=== PATIENT | female | born 1950 | race Caucasian/White ===

== ENCOUNTER → 2018-08-22 13:18 | Outpatient (CLI) | payer MEDICARE, OTHER, SELFPAY ==
--- NOTE | 2018-08-22 | DI.MRI.S_ITS ---
PROCEDURE: MR CERVICAL SPINE WO CON INDICATIONS: CERVICAL SPINE PAIN TECHNIQUE: Noncontrast sagittal T1 spin echo and T2 fast spin echo, sagittal STIR, foraminal oblique sagittal T2 fast spin echo, and axial gradient echo or T2 fast spin echo through the cervical spine. COMPARISON: [facility], CR, XR CERVICAL SPINE 2 OR 3 VIEWS, 08/16/2018, 13:23. FINDINGS: Image quality: Excellent. Alignment and Curvature: There is normal bony alignment. Bone Marrow: Marrow demonstrates normal overall signal. Spinal Cord: Visualized spinal cord has normal size and signal. No cerebellar tonsillar herniation. Paraspinous Soft Tissues: No paravertebral masses. Prevertebral soft tissues are normal in thickness. C2-C3: Moderate disc desiccation. Congenital canal stenosis. Mild bilateral facet hypertrophy. Mild canal stenosis. No significant foraminal stenosis. C3-C4: Congenital canal stenosis. Moderate disc desiccation and mild diffuse disc bulge. Mild bilateral facet and uncovertebral hypertrophy. Mild canal stenosis. Mild bilateral foraminal stenosis. C4-C5: Congenital canal stenosis. Moderate disc desiccation and mild diffuse disc bulge. Moderate right greater than left facet and uncovertebral hypertrophy. Moderate canal stenosis. Moderate right and mild left foraminal stenosis. C5-C6: Moderate disc desiccation. Mild diffuse disc bulge. Congenital canal stenosis. Mild bilateral facet and uncovertebral hypertrophy. Moderate canal stenosis. Moderate right and mild left foraminal stenosis. C6-C7: Congenital canal stenosis. Moderate disc height loss and desiccation. Moderate diffuse disc bulge with superimposed broad-based left posterolateral protrusion. Moderate facet and ligamentum flavum hypertrophy. Severe canal stenosis. Mild cord flattening. Severe left and moderate right foraminal stenosis. Flattening deformity of the left C7 nerve root within the neural foramen. C7-T1: Congenital canal stenosis. Moderate disc desiccation. Mild diffuse disc bulge. Mild bilateral facet and uncovertebral hypertrophy. Mild canal stenosis. Moderate bilateral foraminal stenosis. IMPRESSION: 1. Diffuse congenital canal stenosis, with superimposed disc and facet disease, as well as uncovertebral hypertrophy. 2. Multilevel canal stenoses, worst at C6-C7, where there is mild cord flattening present. 3. Multilevel foraminal stenoses, worst at C6-C7 on the left, where there is flattening deformity of the left C7 nerve root. Recommend correlation with clinical symptoms to ascertain relevance of this finding. Dictated by: Ted Mcclain M.D. on 08/22/2018 at 15:19 Approved by: Ted Mcclain M.D. on 08/22/2018 at 15:28
== END ==
PROVIDERS: PCP Family Medicine; Visit Provider Orthopaedic Surgery Orthopaedic Surgery of the Spine
DX: M48.02 Spinal stenosis, cervical region (principal); M50.21 Other cervical disc displacement, high cervical region
CPT/HCPCS: 72141

== ENCOUNTER → 2020-09-22 13:00 | Outpatient (CLI) | payer MEDICARE, OTHER, SELFPAY ==
--- NOTE | 2020-09-22 13:37 | DI.MRI.S_ITS ---
PROCEDURE: MR LUMBAR SPINE WO CON INDICATIONS: Other spondylosis with radiculopathy, lumbar regio TECHNIQUE: Noncontrast sagittal T1 spin echo and T2 fast echo, sagittal STIR, axial T1 and T2 fast spin echo through the lumbar spine. In cases with scoliosis, additional coronal T2 fast spin echo may be performed. COMPARISON: [facility], MR, L-SPINE WITHOUT CONTRAST, 02/15/2017, 14:20. FINDINGS: Image quality: Excellent. Alignment and Curvature: No plain films are available for comparison, for numbering purposes. Thus, for the purposes of this examination, 5 lumbar type vertebral bodies will be presumed, as denoted on the montage panel. This should be confirmed and correlated with plain films, prior to any lumbar spinal intervention. There is mild grade 1 retrolisthesis of L1 on L2, L3 on L4, and L4 on L5. Bone Marrow: Marrow is of normal overall signal. No acute vertebral body compression fractures. Mild reactive signal within the endplates adjacent to the T11-T12, T12-L1, L1-L2, L2-L3, L3-L4, and L4-L5 intervertebral discs. L4-L5 laminotomy. Spinal Cord: Conus medullaris terminates at the L1-L2 disc space level. Visualized cord demonstrates normal signal and size. Paraspinous Soft Tissues: No paravertebral masses. T12-L1: Moderate disc height loss and desiccation. Mild diffuse disc bulge. Mild facet and ligamentum flavum hypertrophy. Mild epidural lipomatosis. Mild canal stenosis. Mild bilateral foraminal stenosis. No change. L1-L2: Moderate disc height loss and desiccation. Mild diffuse disc bulge. Mild facet and ligamentum flavum hypertrophy. Mild epidural lipomatosis. Mild canal stenosis. Mild bilateral foraminal stenosis. No change. L2-L3: Severe disc height loss and desiccation. Mild diffuse disc bulge/osteophyte. Mild facet and ligamentum flavum hypertrophy. Mild epidural lipomatosis. Mild canal stenosis. Moderate right and mild left foraminal stenosis. No change. L3-L4: Moderate disc height loss and desiccation. Mild diffuse disc bulge with superimposed broad-based right far lateral protrusion. Mild facet and ligamentum flavum hypertrophy. Mild epidural lipomatosis. Increased, severe canal stenosis. Increased, severe left and moderate right foraminal stenosis. Left L3 nerve root compression. L4-L5: Mild disc height loss. Moderate disc desiccation. Moderate diffuse disc bulge. Moderate facet and ligamentum flavum hypertrophy. Mild epidural lipomatosis. There is decreased, moderate to severe canal stenosis. There is severe bilateral foraminal stenosis, which appears slightly increased. Bilateral L4 nerve root compression. L5-S1: Mild disc height loss and desiccation. Mild diffuse disc bulge. Mild facet and ligamentum flavum hypertrophy. Mild epidural lipomatosis. Moderate canal stenosis. Moderate subarticular foraminal stenosis bilaterally. No change. IMPRESSION: 1. Postsurgical sequelae. 2. Multilevel degenerative disc and facet disease, as well as ligamentum flavum hypertrophy and epidural lipomatosis. 3. Multilevel canal stenoses, worst at L3-L4, where there is increased, severe canal stenosis. Decreased, moderate to severe canal stenosis at L4-L5 following posterior decompression. 4. Multilevel foraminal stenoses, worst at L3-L4 and L4-L5 where there is associated intraforaminal nerve root compression. Recommend correlation with clinical symptoms to ascertain relevance of these findings. Dictated by: Ted Mcclain M.D. on 09/22/2020 at 14:10 Approved by: Ted Mcclain M.D. on 09/22/2020 at 14:15
== END ==
PROVIDERS: PCP Family Medicine; Referring Provider Orthopaedic Surgery Orthopaedic Surgery of the Spine; Visit Provider Orthopaedic Surgery Orthopaedic Surgery of the Spine
DX: M47.26 Other spondylosis with radiculopathy, lumbar region (principal); M47.27 Other spondylosis with radiculopathy, lumbosacral region; M51.16 Intervertebral disc disorders with radiculopathy, lumbar region; M48.07 Spinal stenosis, lumbosacral region; M48.061 Spinal stenosis, lumbar region without neurogenic claudication; M51.17 Intervertebral disc disorders with radiculopathy, lumbosacral region; E88.2 Lipomatosis, not elsewhere classified
CPT/HCPCS: 72148

== ENCOUNTER → 2020-12-31 09:38 | Outpatient (CLI) | payer MEDICARE, OTHER, SELFPAY ==
[2020-12-31 10:31] LABS: COVID19 -Nasal RAPID Negative (Negative)
== END ==
PROVIDERS: PCP Family Medicine; Visit Provider Surgery
DX: Z20.822 Contact with and (suspected) exposure to COVID-19 (principal); Z01.812 Encounter for preprocedural laboratory examination
CPT/HCPCS: 87635; C9803

== ENCOUNTER 2021-01-03 08:32 | Day surgery (SDC) | payer MEDICARE, OTHER, SELFPAY ==
[2021-01-03 09:20] VITALS: BP 146/59; PULSE 75; RESP 16; TEMP 36.3; O2SAT 100; BMI 31.6
--- NOTE | 2021-01-03 09:50 | PM.HP.1 ---
History of Present Illness History of Present Illness Date Patient Seen: 01/03/21 Time Patient Seen: 09:51 Chief complaint: SCREENING COLONOSCOPY Narrative: The patient presents for colorectal sreening. She has had a previous colonoscopy 12 years ago which was normal. No personal or family history of colon cancer. On further history denies any recent gastrointestinal symptoms. No nausea, vomiting, abdominal pain, loss of appetite, unexplained weight loss, change in bowel habits, diarrhea, constipation, melena, hematochezia, or bright red blood per rectum. Patient History Medical History Diabetes mellitus HTN (hypertension) Hyperlipidemia Surgical History H/O section Status post surgery (02/21/13) Family & Social History Social History: household members spouse Tobacco & Substance use: Smoking Status Never smoker alcohol intake current alcohol intake frequency 0-2 drinks per day Meds Home Medications and Allergies Home Medications Medication Instructions Recorded Confirmed Type aspirin 162 mg PO QDAY #0 12/26/12 History escitalopram oxalate [Lexapro] 20 mg PO QDAY #0 12/26/12 History insulin glargine [Lantus U-100 21 unit SQ QAM #10 ml 12/26/12 History Insulin] insulin glulisine U-100 [Apidra 0 unit SQ QDAY #10 ml 12/26/12 History U-100 Insulin] omeprazole 20 mg PO Q DAY #0 12/26/12 History rosuvastatin [Crestor] 10 mg PO QDAY #0 02/18/13 History furosemide [Lasix] 20 mg PO Q DAY #0 03/01/17 History gabapentin [Neurontin] 300 mg PO TID #0 03/01/17 History nitroglycerin [Nitrostat] 0.4 mg SUBLINGUAL Q5MIN X3 #0 03/01/17 History doxycycline hyclate 100 mg PO BID #0 03/05/17 History amlodipine 01/03/21 History Allergies Allergy/AdvReac Type Severity Reaction Status Date / Time adhesive [ADHESIVE] Allergy Unknown UNKNOWN Unverified 12/12/17 12:06 Sulfa (Sulfonamide Allergy Unknown Unverified 12/12/17 12:06 Antibiotics) [SULFA (SULFONAMIDE ANTIBIOTICS)] Corticosteroids AdvReac Unknown ELEVATED Unverified 12/12/17 12:06 (Glucocorticoids) GLUCOSE [CORTICOSTEROIDS (GLUCOCORTICOIDS)] Review of Systems Review of Systems ROS: Yes All systems reviewed with the patient and are negative except as otherwise documented Exam Vital Signs (past 8 hours): - 01/03/21 09:20 Temperature 97.3 F L Pulse Rate 75 Respiratory Rate 16 Blood Pressure 146/59 H Pulse Oximetry 100 Oxygen Delivery Method Room Air Narrative Exam Narrative: GENERAL-well developed adult woman, no acute distress HEENT-no scleral icterus, hearing intact NECK-no JVD, trachea midline CVS- regular rate, no peripheral edema RESP-unlabored respiratory effort, no audible wheezing GI-soft, nontender nondistended MSK-no cyanosis or clubbing, extremities without deformity SKIN-warm, dry NEURO-alert and oriented, no focal deficits PYSCH-Appropriate mood and affect Assessment & Plan Assessment & Plan narrative: The patient requires colorectal screening and colonoscopy is recommended. Technical details were discussed. Risks, benefits, alternatives explained. Risks including but not limited to myocardial infarction, aspiration, bleeding, pain, missed lesion, incomplete examination, need for further radiographic studies, colonic perforation, and need for major abdominal surgery were discussed. All questions were answered to their satisfaction, and they are in agreement with this plan.
--- NOTE | 2021-01-03 09:55 | SUR.PREOP ---
Surgeon spoke with pt and Consent obtained.
--- NOTE | 2021-01-03 09:59 | SUR.PREOP ---
Surgeon aware of blood sugar 287 and that pt consumed pitcher of prep at 0530.
[2021-01-03] MEDS: fentaNYL 250 MCG/5 ML INJ IV (10:07)
[2021-01-03] MEDS: MIDAZOLAM 5 MG/5 ML VIAL IV (10:16)
--- NOTE | 2021-01-03 10:31 | PM.OP.ENDO ---
Operative Date/Time/Diagnoses Date of procedure: 01/03/21 Pre-op diagnosis: Screening colonoscopy Post-op diagnosis: same Procedure & Clinicians Study performed: Colonoscopy Same procedure as scheduled: Yes Indications: Screening colonoscopy Surgeon: Elbert Whipple Procedure Notes Procedure in detail: Medications: Conscious sedation using 4 mg IV midazolam and 100 mcg IV of fentanyl The history and physical was performed/updated and the patient is ASA class is 2. The procedure was discussed in detail with the patient. Potential risks complications including infection, bleeding, missed diagnosis, perforation, need for surgery, and were explained. Their questions were answered and informed consent was obtained. Patient was brought to the procedure room and placed standard monitoring equipment. The patient's vital signs were monitored continuously throughout the entire procedure. Prior to starting time-out was performed. The patient was placed in the left lateral recumbent position. Procedural sedation was administered. Examination began with a thorough inspection of the perianal area there was no evidence of fissures, fistulae, external hemorrhoids or cutaneous malignancy. The colonoscopy scope was then placed into the anal canal and was advanced to the cecum, which was identified by the ileocecal valve, the appendiceal orifice and the confluence of the taenia. The scope was then slowly withdrawn examining colon thoroughly in all directions, irrigating it of any residual stool. 1. No masses or polyps 2. Sigmoid diverticulosis 3. Grade 1 internal hemorrhoids The patient tolerated the procedure well. They will be discharged once criteria are met. The prep was of good/excellent quality. The withdrawl time was 7 minutes. The sedation time was 22 minutes. Specimen(s): none sent Complications: none Impression: Normal colonoscopy Post-procedure Recommendations: Colonscopy in 10 years Disposition: same day surgery
[2021-01-03 10:35] VITALS: BP 133/56; PULSE 73; RESP 14; TEMP 36.3; O2SAT 98
[2021-01-03 10:40] VITALS: BP 134/54; PULSE 71; RESP 12; O2SAT 98
[2021-01-03 10:45] VITALS: BP 134/56; PULSE 69; RESP 13; O2SAT 97
[2021-01-03 10:50] VITALS: BP 144/58; PULSE 68; RESP 12; TEMP 36.2; O2SAT 97
[2021-01-03 10:55] VITALS: BP 153/59; PULSE 68; RESP 14; O2SAT 97
== END 2021-01-03 11:30 | disposition home or self-care (01) ==
PROVIDERS: PCP Family Medicine; Referring Provider Family Medicine; Visit Provider Surgery
PROC: 0DJD8ZZ Inspection of Lower Intestinal Tract, Via Natural or Artificial Opening Endoscopic (ICD-10-PCS; CPT 45378; principal; 2021-01-03 10:00)
DX: Z12.11 Encounter for screening for malignant neoplasm of colon (principal); E11.9 Type 2 diabetes mellitus without complications; Z79.4 Long term (current) use of insulin; I10 Essential (primary) hypertension; E78.5 Hyperlipidemia, unspecified; K57.30 Diverticulosis of large intestine without perforation or abscess without bleeding; K64.0 First degree hemorrhoids
CPT/HCPCS: G0121; 82962; 99152; J2250; J3010

== ENCOUNTER → 2021-03-08 13:52 | Outpatient (CLI) | payer MEDICARE, OTHER, SELFPAY ==
[2021-03-08 15:14] LABS: Hemoglobin A1C% w Est Avg Glu 7.4 % (4.0-6.0)
[2021-03-08 15:48] LABS: Basophils Absolute Auto 100 /uL (0-100); Basophils Percent Auto 0.8 % (0-2); Eosinophils Absolute Auto 100 /uL (0-450); Eosinophils Percent Auto 1.4 % (2-4); Hematocrit 38.8 % (36-46); Hemoglobin 12.6 g/dL (12.0-16.0); Lymphocytes Absolute Auto 1800 /uL (1100-4500); Lymphocytes Percent Auto 24.9 % (25-40); Mean Corpuscular HGB Conc 32.6 % (30-36); Mean Corpuscular Hemoglobin 26.4 PG (26-34); Mean Corpuscular Volume 81.1 fL (80-100); Monocytes Absolute Auto 600 /uL (0-900); Monocytes Percent Auto 8.2 % (3-14); Neutrophils Absolute Auto 4800 /uL (1500-7000); Neutrophils Percent Auto 64.7 % (50-75); Platelet Count 177 X10^3/uL (150-400); Red Blood Cell Count 4.78 X10^6/uL (4.0-5.2); Red Cell Distribution Width 16.8 % (11.6-14.8); White Blood Cell Count 7.4 X10^3/uL (4.5-11.0)
[2021-03-08 15:51] LABS: BUN Creatinine Ratio 28.4 (6-22); Blood Urea Nitrogen 21 mg/dL (7-17); Calcium 9.2 mg/dL (8.4-10.2); Carbon Dioxide 27 mmol/L (22-32); Chloride 104 mmol/L (98-107); Estimated Glomerular Filt Rate > 60.0 mL/min (>60); Glucose 174 mg/dL (80-110); HEMOLYSIS < 15 (0-50); Potassium 4.9 mmol/L (3.4-5.1); Sodium 138 mmol/L (137-145)
[2021-03-08 15:54] LABS: Add Manual Diff / Slide Review SLIDE REVIEW
[2021-03-08 16:21] LABS: Platelet Estimate Adequate on smear; RBC Morphology Normal Morphology
== END ==
PROVIDERS: PCP Family Medicine; Referring Provider Orthopaedic Surgery Orthopaedic Surgery of the Spine; Visit Provider Orthopaedic Surgery Orthopaedic Surgery of the Spine
DX: Z01.818 Encounter for other preprocedural examination (principal); R73.9 Hyperglycemia, unspecified; Z01.812 Encounter for preprocedural laboratory examination
CPT/HCPCS: 36415; 80048; 83036; 85025; 93005

== ENCOUNTER → 2021-03-18 11:00 | Outpatient (CLI) | payer MEDICARE, OTHER, SELFPAY ==
--- NOTE | 2021-03-18 | DI.CT.S_ITS ---
PROCEDURE: CT LUMBAR SPINE WO CON INDICATIONS: Spinal stenosis, lumbar region with neurogenic claudication. Low back pain. Myelogram TECHNIQUE: Noncontrast 3 mm thick sections acquired from the T12 level to the sacrum. Sagittal and coronal reformats were constructed. For radiation dose reduction, the following was used: automated exposure control. COMPARISON: [facility] [place], CR, XR LUMBAR SPINE 2 OR 3 VIEWS, 11/21/2017, 13:57. [facility] [place], CR, XR LUMBAR SPINE 2 OR 3 VIEWS, 08/06/2020, 10:41. [facility], MR, MR LUMBAR SPINE WO CON, 09/22/2020, 13:34. FINDINGS: Image quality: Excellent. Bones: Mild levoconvex scoliotic curvature is noted. No focal AP alignment abnormality is seen. No acute vertebral body compression fractures. No suspicious lytic or blastic bony lesions. No pars defects. There is transitional lumbar anatomy, with a partially sacralized L5 level. T11-T12: At least moderate loss of disc height is seen. Vacuum disc phenomenon is seen at this level. No significant neural foraminal or central canal narrowing can be seen. T12-L1: There is at least moderate loss of disc height at this level. Prominent vacuum phenomenon is seen. Mild generalized disc bulge is seen. No significant neural foraminal or central canal narrowing can be seen. L1-L2: There is moderate loss of disc height. Vacuum disc phenomenon is seen at this level. Moderate generalized disc bulge is seen. Prominent bridging endplate osteophytes are seen on the left. There is mild left-sided and moderate to severe right-sided neural foraminal narrowing seen. Mild central canal narrowing is seen. L2-L3: At least moderate loss of disc height is seen. Vacuum disc phenomenon is seen at this level. Bridging endplate osteophytes are seen. Moderate generalized disc bulge is seen. There is mild left-sided and at least moderate right-sided neural foraminal narrowing seen. Moderate central canal narrowing is seen. L3-L4: Mild loss of disc height is seen. Vacuum disc phenomenon is seen at this level. At least moderate disc bulge is seen, which is eccentric to the right. There is moderate to severe bilateral neural foraminal narrowing seen. At least moderate central canal narrowing is seen. L4-L5: The disc height is relatively well preserved. Vacuum disc phenomenon is seen at this level. Moderate to prominent disc bulge is seen. Mild to moderate facet hypertrophy is seen. There is moderate to severe bilateral neural foraminal narrowing seen. At least moderate central canal narrowing can be seen. L5-S1: The disc height is well preserved. Vacuum disc phenomenon is seen at this level. Mild to moderate facet hypertrophy is seen at this level. There is moderate left-sided and no significant right-sided neural foraminal narrowing seen. No significant central canal narrowing is seen. Soft tissues: No retroperitoneal masses or hematomas. Visualized aorta is normal in caliber. Atherosclerotic calcification is noted. A small hiatal hernia is incidentally noted. IMPRESSION: Multiple levels of relatively prominent lumbar spine degenerative change are seen, which are similar to the prior MRI examination. Incidental note is made of: Small hiatal hernia Partially sacralized L5 level. Dictated by: Kirill Hull M.D. on 03/18/2021 at 11:50 Approved by: Kirill Hull M.D. on 03/18/2021 at 11:55
== END ==
PROVIDERS: PCP Family Medicine; Referring Provider Orthopaedic Surgery Orthopaedic Surgery of the Spine; Visit Provider Orthopaedic Surgery Orthopaedic Surgery of the Spine
DX: M48.062 Spinal stenosis, lumbar region with neurogenic claudication (principal); M54.5 Low back pain; M47.816 Spondylosis without myelopathy or radiculopathy, lumbar region; M47.817 Spondylosis without myelopathy or radiculopathy, lumbosacral region; K44.9 Diaphragmatic hernia without obstruction or gangrene; M43.27 Fusion of spine, lumbosacral region
CPT/HCPCS: 72131

== ENCOUNTER → 2021-03-18 13:18 | Outpatient (CLI) | payer MEDICARE, OTHER, SELFPAY ==
[2021-03-18 13:44] LABS: COVID19 -Nasal RAPID Negative (Negative)
== END ==
PROVIDERS: PCP Family Medicine; Visit Provider Physician Assistant
DX: Z01.812 Encounter for preprocedural laboratory examination (principal); Z20.822 Contact with and (suspected) exposure to COVID-19
CPT/HCPCS: 87635

== ENCOUNTER 2021-03-21 05:42 | Inpatient (IN) | payer MEDICARE, OTHER, SELFPAY ==
[2021-03-15 09:42] VITALS: BMI 31.0
[2021-03-21] VITALS (19 sets, daily range): BP systolic 102–141; BP diastolic 45–64; PULSE 69–86; RESP 7–26; TEMP 35.6–36.5; O2SAT 87–99; BMI 31.9
[2021-03-21] MEDS: LACTATED RINGERS 1,000 ML 42 ML IV ×2 (07:09→09:42)
--- NOTE | 2021-03-21 07:34 | PM.PREOP ---
Pre-operative Note COVID-19 COVID-19 status: Negative Result date/Date tested (Pos, Neg/Pending): 03/19/21 Interval Note History & Physical reviewed/Exam performed by Physician: Yes Changes to H&P: No
[2021-03-21] MEDS: CEFAZOLIN 1 GM VIAL 2 GM IV ×2 (07:48→16:35)
--- NOTE | 2021-03-21 09:40 | SUR.OPER ---
Prone on spine table, head in foam head support, padded chest and pelvic supports, gel pad at knees, lower legs supported by pillows; nipples, genitalia and toes free of pressure, arms secured on foam padded arm boards at <90 degrees abduction. Tape over blanket at thigh secured to table.
[2021-03-21] MEDS: BUPIVACAINE LIPOSOME 266 MG/20 ML VIAL INJ (09:43)
[2021-03-21] MEDS: BUPIVACAINE 0.25% W/ EPI 30 ML VIAL 60 ML INJ (09:43)
--- NOTE | 2021-03-21 09:44 | SUR.OPER ---
Patient's CBG rechecked at [address] Poe, = 194.
[2021-03-21] MEDS: INSULIN REGULAR 100 UNIT/ML 3 ML VIAL SUBCUT ×2 (11:00→13:03)
--- NOTE | 2021-03-21 11:57 | SUR.OPER ---
CBG rechecked at 1050 = 231. Regular insulin ordered by Dr. Poe and given by him.
--- NOTE | 2021-03-21 12:11 | DI.RAD.S_ITS ---
PROCEDURE: XR LUMBAR SPINE 2-3V INDICATIONS: L3-4, L4-5 TLIF TECHNIQUE: 2 intraoperative fluoroscopic views of the lumbar spine were acquired. COMPARISON: None. FINDINGS: Intraoperative fluoroscopic images of lower lumbar spine shows posterior fusion and intervertebral spacer placement at L3 through L5 levels. IMPRESSION: Fluoro guidance was provided intraoperatively for posterior fusion at L3 through L5 levels. Dictated by: Matthew Willingham M.D. on 03/21/2021 at 12:17 Approved by: Matthew Willingham M.D. on 03/21/2021 at 12:18
--- NOTE | 2021-03-21 12:24 | PM.OP.1 ---
Operative Date/Time/Diagnoses Date of procedure: 03/21/21 Time of procedure: 07:55 Pre-op diagnosis: 1. L3-4, L4-5 hx of laminectomies and radiculopathy 2. L3-4, L4-5 spinal stenosis with radiculopathy Post-op diagnosis: same Procedure & Clinicians Procedure: 1. L3-4, L4-5 Postero-lateral and posterior interbody fusion 2. L3-4, L4-5 interbody cage placement. 3. L3-4, L4-5 decompressive laminectomy with bilateral facetecomies 4. L3-4, L4-5 Posterior segmental instrumentation 5. [place] of bone marrow from iliac crest 6. Utilization of microsurgical technique and operating microscope 7. Robotic navigation assisted implant placement Same procedure as scheduled: Yes Indications: Patient has been having chronic back pain and worsening lumbar radiculopathy. Patient had previous laminectomies with temporary relief of her symptoms with worsening of her back pain and leg pain over the last year. Patient failed multiple conservative management with worsening pain weakness and numbness in her lower extremity. Patient has been having difficulty performing activity of daily living. After discussing risks benefits of treatment options, patient elected proceed with surgery. Surgeon: Debbie Pichardo Logistics Operations Manager: [place] Click Yes if Unassisted: No Anesthesia Type: General Operative Notes Closure Type: primary Specimen(s): none sent Prosthetic devices, grafts, tissues, transplants, or devices: GLobus CREO screws, RIse cages Applied: catheter Estimated Blood Loss (mL): 200 Blood products transfused: none Procedure in detail: Patient was seen in the preoperative area. Risks and benefits of the surgery was discussed with the patient. Informed consent was obtained from the patient and placed in the chart. Surgical site was marked. Patient was taken to the operative room. General anesthesia was administered. Prophylactic antibiotic was given to the patient less than 30 min before the incision was made. Patient was placed into a prone position on the Jose Manuel table. Patient's back was then prepped and draped in the sterile fashion. Time-out was performed at this time. After patient was prepped and draped, patient's PSIS was palpated and marked bilaterally. Small 1 cm incision was made over the PSIS for placement of the reference probes. Two trocar was placed into the PSIS 1 on each side. The reference probe was attached to the trocar of the reference apparatus. At this time the C-arm imaging was used to confirm AP and lateral of L3, L4-L5 vertebrae and merged the C-arm imaging using the [employer] robotic navigation system with the CT of the lumbar spine. After successful merging was completed and confirmed, skin marker was used to slim out the skin incision using the [employer] robotic arm. Bilateral incision was made at this time. Pre templated trajectory was used and guided using the [employer] robotic navigation system for bilateral L3 L4, L5 pedicle screw placement. This was done by using the robotic arm to guide the high-speed bur to make a cortical entry point. Next a drill was placed also using the robotic arm and guided using the navigation system drilling partially through bilateral L3, L4, L5 pedicles. Next L3, L4, L5 pedicle screws it was pre templated and measured was placed onto the power armor reconnaissance vehicle driver and inserted into the pedicles bilaterally. After all 6 screws were placed C-arm imaging was taken of both AP and lateral to confirm the placement. Excellent placement of the screws were confirmed and a matched precisely with the pre planned screw placement using the navigation system. MARs retractor was inserted using [employer] guidence. Globus MARS retractors was placed inside the incision and docked onto the L3, L4 lamina. Using microsurgical technique and operating microscope, a L4, L5 laminectomy and L3-4, L4-5 facetectomy was performed using a [place] rongeur. Patient was found have severe lateral recess and neural foramen stenosis which was fully decompressed after the laminectomy facetectomy. More than 75% of the facets were removed during the process of decompression rendering L3-4, L4-5 level grossly unstable and required a fusion procedure at the same time. Patient was also found to have significant amount of epidural scar from prior laminectomy. Right extra care was taken to not need breach the dura or having any irritation to the nerve structures during the process of laminectomy and facetectomy. The disc space at L3-4, L4-5 was identified, and a total diskectomy was performed at L3-4, L4-5 level. The endplates were decorticated using a rasp and shaver. The total diskectomy and decortication was performed at L3-4, L4-5 level in order to to accomplish a L3-4, L4-5 fusion. The local bone from the laminectomy and facetectomy was saved for local bone grafting. After the total diskectomy and decortication was completed, Trifecta bone graft material was combined with local bone that was harvested earlier. At this time, a separate skin is incision was made over the iliac crest. A Jamshidi needle was inserted into the iliac crest through a separate skin incision. 5 cc of bone marrow aspiration was obtained through the separate skin incision using a Jamshidi needle from the iliac crest. The bone marrow aspiration was combined with local bone and the Trifecta bone grafting material. The bone grafting material was placed into the L3-4, L4-5 interbody space along with expandable cages. One cage each was inserted into the L3-4 L4-5 interbody space along with bone graft material. The cage was expanded to its maximum height using the torque limiting screwdriver. The disc preparation as well as the cage insertion were also performed under navigation guidance. After the cage was placed, AP and lateral C-arm imaging was taken to confirm placement of the cage and excellent position was confirmed. Globus MARS retractor was inserted and docked onto the L3-4, L4-5 posterolateral gutter on the right side. Using the power drill, posterior-lateral decortication was performed at L3-4, L4-5 level until bleeding cortical bone was identified. The remaining bone grafting material was placed into the L3-4, L4-5 posterior lateral gutter he order to accomplish posterolateral fusion at the L3-4, L4-5 level. At this time the tulips were attached to the L3, L4-L5 pedicle screw shanks. After measuring the length of the rods, they were inserted into the tulips of the pedicle screws and locked in place using locking caps and torque limiting screwdriver bilaterally. Total 6 caps and 2 titanium rods was used in order to complete the posterior instrumentation construct. After all the hardware was placed, and confirmed with AP and lateral C-arm imaging, the wound was then irrigated with sterile normal saline and packed with Ray-Alexander gauze for 3 min to accomplish hemostasis. After the gauze was removed the deep fascia was closed with #1 Vicryl suture. The subcutaneous layer was closed with 2-0 Vicryl. The skin was closed with skin piper. Patient tolerated the procedure well. There were no complications. Neuro monitoring system was used to monitor patient's neurologic status throughout entire procedure. There was no disturbance of the neural monitoring signals throughout the case. Complications: none Post-operative Condition: stable Disposition: PACU Plan for aftercare: Admit to inpatient hospital
[2021-03-21] MEDS: OXYCODONE/ACETAMINOPHEN 5/325 TABLET 1 TAB PO ×2 (13:22→13:51)
[2021-03-21] MEDS: hydrOXYzine 50 MG/ML INJ IM (13:23)
--- NOTE | 2021-03-21 14:39 | PC.NURSE ---
Assess- Patient admitted to room 210, she had a multiple level tlif. Dressing to lower back is cdi with small amount of drainage. Patient medicated with two percocet down in PACU, she is groggy but will wake up. 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 BS 188, will be rechecked before dinner. Patient is wiggling her toes and ankles, scd machine on her feet and pumping. Patient is lying supine and will have NS at 100cc/hr infusing.
[2021-03-21] MEDS: SODIUM CHLORIDE 0.9% 1,000 ML 100 ML IV (14:56)
[2021-03-21] MEDS: METOPROLOL IR 25 MG TABLET PO (16:35)
[2021-03-21] MEDS: LOSARTAN 50 MG TABLET PO (20:46)
[2021-03-21] MEDS: ATORVASTATIN 20 MG TABLET PO (20:46)
[2021-03-21] MEDS: DOCUSATE 100 MG CAPSULE PO (20:46)
[2021-03-21] MEDS: SENNOSIDES 8.6 MG TABLET 17.2 MG PO (20:46)
[2021-03-22] MEDS: CEFAZOLIN 1 GM VIAL 2 GM IV (00:29)
[2021-03-22] MEDS: SODIUM CHLORIDE 0.9% 1,000 ML 100 ML IV (00:29)
--- NOTE | 2021-03-22 01:32 | PC.NURSE ---
This RN was told in report that the patients dressing was CDI but upon assessment, the patients dressing has some shadow drainage that was marked with a pen by this RN. Will continue to check for increased drainage. Dressing remained intact at this time. Patient resting in bed and jeff light is within reach.
[2021-03-22] MEDS: ACETAMINOPHEN 325 MG TABLET 650 MG PO ×2 (03:00→08:30)
[2021-03-22 04:13] VITALS: BP 120/60; PULSE 86; RESP 18; TEMP 36.9; O2SAT 96
[2021-03-22] MEDS: PANTOPRAZOLE DR 20 MG TABLET PO (05:50)
[2021-03-22 05:52] LABS: Hematocrit 30.2 % (36-46); Hemoglobin 9.8 g/dL (12.0-16.0)
[2021-03-22 08:00] VITALS: BP 123/82; PULSE 81; RESP 17; TEMP 36.6; O2SAT 96
[2021-03-22] MEDS: INSULIN LISPRO 100 UNIT/ML 3ML VIAL SUBCUT ×7 (08:04→21:44)
[2021-03-22] MEDS: INSULIN GLARGINE 100 UNIT/ML 3ML PEN 18 UNIT SUBCUT (08:05)
[2021-03-22] MEDS: FERROUS SULFATE 325 MG TABLET PO (08:31)
[2021-03-22] MEDS: DOCUSATE 100 MG CAPSULE PO ×2 (08:31→21:43)
[2021-03-22] MEDS: LOSARTAN 50 MG TABLET PO ×2 (08:31→21:45)
--- NOTE | 2021-03-22 09:05 | PT.IIE ---
Current Diagnoses Other spondylosis with radiculopathy, lumbosacral region (03/21/21) Spinal stenosis, lumbar region without neurogenic claudication (03/21/21) Other specified postprocedural states (03/21/21) Surgery Performed Operation Date: 11/22/20 07:45 <No data on this case meets the specified criteria> Operation Date: 03/21/21 07:45 Actual Procedures p L3-4, L4-5 TLIF with posterior instrumentation - Debbie Pichardo MD Medical History (Last Reviewed 03/22/21 @ 11:43 by Janes Amin PA-C) Anxiety Arthritis CAD (coronary artery disease) Diabetes mellitus Easy bruisability GERD (gastroesophageal reflux disease) Heel pain History of left heart catheterization HTN (hypertension) Hyperlipidemia Neuropathy Spinal stenosis Physical Therapy Inpatient Evaluation/Re-Eval M1 PT/OT-IP Prior Functional Status Start: 03/22/21 11:50 Freq: NEEDED Status: Active Protocol: Document 03/22/21 09:05 AB (Rec: 03/22/21 12:00 AB [email or web address]) Medical Review Prior Functional Status Medical History Reviewed Yes Communication able to answer questions but requires cues to keep eyes open; requires increase time to respond to questions and instructions Social History Household Members spouse Living Arrangements House Number of Floors (Floors) Two Floors Number of Stairs To Enter/Railing? has 1 step to enter the house; has 14 steps L rail descending to TV room area Home Environment High Toilet,Walk in Shower Home Equipment Front Wheel Walker,Shower Seat without Backrest,Hand Held Shower,Grab Bars In Shower Additional Social History Comment pt has a walking stick M2 PT-IP Current Condition Start: 03/22/21 11:50 Freq: NEEDED Status: Active Protocol: Document 03/22/21 09:05 AB (Rec: 03/22/21 12:00 AB [email or web address]) Physical Therapy Current Condition Current Condition Evaluation Date 03/22/21 Treatment Diagnosis L3-4, 4-5 fusion/lami; difficulty in walking Onset Date 03/21/21 Precautions Lumbar Precautions Log Roll,No Twisting,Limit Bending,Lifting Restriction of 10 lbs,Gait Belt above Incisional Area M3 PT-IP Subjective Start: 03/22/21 11:50 Freq: NEEDED Status: Active Protocol: Document 03/22/21 09:05 AB (Rec: 03/22/21 12:00 [email or web address]) Subjective Physical Therapy Visit Type Type Initial Evaluation Visit Start Time 09:05 Visit Stop Time 10:05 Total Visit Minutes 60 Number of TALENT ACQUISITION PROJECT MANAGER Visits 0 Physical Therapy Visit Comments Patient Comments agreed to do PT; requires cues to keep eyes open Therapy Pain Assessment Pain When Pain Assessed At Rest Pain Present Pain Present Pain Reported Location lower back Intensity 8 Scale Used Numeric (0 - 10) Pain Management Techniques Apply Cold,Modification of Treatment,Re-positioning, Timing of Activity with Medications M4 PT-IP Mobility and Gait Start: 03/22/21 11:50 Freq: NEEDED Status: Active Protocol: Document 03/22/21 09:05 (Rec: 03/22/21 12:00 [email or web address]) PT-Bed Mobility Assessment Rolling Type of Rolling Log Rolling Level of Assist Maximal Assistance Supine to Sit Supine to Sit Maximum Assistance Scooting Scooting to Edge of Bed Maximum Assistance PT-Transfer Assessment Sit to and From Stand Sit to and from Stand Moderate Assistance,1 Person Assistance,Use of Upper Extremities Equipment Transfer Assistive Device Gait Belt,Front Wheeled Walker Orthotic/Prosthetic Devices or Brace: No Transfers Transfer Destination Chair Transfer Technique Stand Step Pivot Transfer Ability Level of Assist Moderate Assistance,1 Person Assistance,Use of Upper Extremities Comments Mobility Comments educated pt and spouse regarding back precautions and log roll bed mobility. pt completed log roll supine to sit max A and max cues. requiring min A for sitting balance, max A for scooting to EOB. completed sit to stand mod A and cues and step transfer to chair using FWW mod A and cues. pt agreed to ambulated and completed ~ 5 ft using FWW mod A. presents with decrease step elevation and pt continues to be drowsy affecting following directions . pt agreed to stay up on chair. positioned on chair. call light and table placed within reach. Gait Assessment Gait Gait Assistance Required: Moderate Assistance Distance (Feet) 5 Able to Maintain Weight Bearing Status Yes During Gait Assistive Devices Assistive Device Gait Belt,Front Wheeled Walker Orthotic/Prosthetic Devices or Brace: No Gait Deviations General Gait Pattern Antalgic,Decreased Stride Length,Decreased Feet Clearance,Step-to Gait Factors Limiting Gait Function Factors Limiting Gait Function Decreased Activity Tolerance, Decreased Strength,Difficulty Following Directions,Limited Range of Motion,Pain,Poor Balance,Poor Safety Awareness Comments Gait Comments pls refer to mobility section for details. PT-Balance Assessment Sitting Balance and Reactions Static Sitting Balance Ability Good Dynamic Sitting Balance Ability Fair Standing Balance and Reactions Static Standing Balance Ability Poor Dynamic Standing Balance Ability Poor Device Used FWW M5 PT-IP Objective Assessments Start: 03/22/21 11:50 Freq: NEEDED Status: Active Protocol: Document 03/22/21 09:05 AB (Rec: 03/22/21 12:00 AB [email or web address]) Orientation Orientation/Cognition Level of Alertness Lethargic Orientation Name Safety Awareness Decreased Safety Awareness Memory Description Short Term Impaired Gross Range of Motion Lower Extremity ROM Assessment Within Functional Limits Strength Lower Extremity Strength Hip 3+/5 Knee 4-/5 Muscle Tone Muscle Tone WNL Yes M6 PT-IP Treatment Start: 03/22/21 11:50 Freq: NEEDED Status: Active Protocol: Document 03/22/21 09:05 AB (Rec: 03/22/21 12:00 AB [email or web address]) Physical Therapy Treatment Education Education Provided Precautions,Weight Bearing Status,Post-Op Packet,Safety M7 PT-IP Assessment and Plan Start: 03/22/21 11:50 Freq: NEEDED Status: Active Protocol: Document 03/22/21 09:05 AB (Rec: 03/22/21 12:00 AB [email or web address]) PT Summary Assessment and Plan Potential Rehabilitation Potential Good Status of Condition at Evaluation Evolving Summary Impairments Pain,ROM,Strength,Balance, Coordination,Sensation,Tone, Cognition,Bed Mobility, Transfers,Gait,Activity Tolerance Assessment Summary pt requiring mod to max A with mobility using FWW. Pt is drowsy affecting activity tolerance, safety awareness and mobility. pt plans to go home with spouse to assist her . will conduct caregiver training when appropriate. will continue to assess progress for safe d/c plan. Goals Bed Mobility Goal Standby Assistance Transfer Goal Independent,Front Wheeled Walker Gait Goal Standby Assistance,Front Wheel Walker Gait Distance 150 Other Goals up/down 1 step using FWW SBA up/down 14 steps R rail ascending SBA Days to Meet Goals 10 Frequency of Treatment Frequency Of Treatment Twice a Day Treatment Plan Physical Therapy Treatment Plan Bed Mobility Training,Transfer Training,Gait Training, Therapeutic Exercise,Balance Retraining,Post Op Education, Discharge Planning,Hot or Cold Pack,Neuromuscular Re-ed, Coordination Retraining,Manual Therapy Precautions Lumbar Precautions Log Roll,No Twisting,Limit Bending,Lifting Restriction of 10 lbs,Gait Belt above Incisional Area Recommendations To Nursing Amount of Assist Needed 2 Person Assist Discharge Recommendations PT Discharge Recommendations Home with 26/03 Assist Available,Home Health,SNF Rehab,Home vs SNF Transportation Needs at Discharge Private Vehicle,Wheelchair/ Cabulance
[2021-03-22] MEDS: AMLODIPINE 5 MG TABLET PO (09:12)
--- NOTE | 2021-03-22 09:50 | PC.NURSE ---
Addendum entered by Rosina Diego R.N. 03/22/21 13:27: Patient back to bed with 2 person assist, she will need more work with Physical therapy to do this but was able to do well with queing and getting herself out of the chair and standing. She is on her left side and resting comfortably. Original Note: Assess- Patient is alert and oriented x3, she is more awake but still groggy when sitting up with physical therapy. Dressing to lower back changed to cover site plus x 2 dressings now cdi. CMS wnl and ppx2. Patient states that her pain is a 0 at rest, given tylenol earlier this morning. Patient has not had any narcotic pain medication since coming out of surgery, she has been very groggy, just sitting up at the side of the bed, and eyes closing. She wakes up easily and does know where she is at. at bedside and helpful with care.
--- NOTE | 2021-03-22 10:59 | CM.DANOTE ---
Discharge Planning/Care Management DCP: assessment: Case received, EMR reviewed, discussed in Team Rounds and then met with pt. Introduced self and role. Pt is a 70 year old female who admitted yesterday for a scheduled spinal/lumbar surgery. Admission status: INPT: confirmed by UR MILLY Barretter: Medicare and [facility] Pt confirms she plans to d/c home when stable for same with assist from Nicolas. He was present for caregiver training with the therapy team this morning. DCP team will follow prn as POC unfolds to make sure plan as per above remains doable. CM Discharge Assessment Start: 03/22/21 10:56 Freq: Status: Active Protocol: Document 03/22/21 10:56 ITV (Rec: 03/22/21 10:58 ITV [id number]) Discharge Planning Assessment Advance Directives? No History Provided By Patient,Medical Record Prior Living Arrangements House Household Members spouse Independent with ADL's Yes Is patient alert and oriented? Yes DME Already Rented / Owned FWW / Walker,Other Comment used one walking stick when going out for extended time. Has a FWW at home and is currently using this with PT/ OT during their sessions Pre-Anesthesia Assessment Start: 03/15/21 09:42 Freq: Status: Active Protocol: Document 03/15/21 09:42 CAB (Rec: 03/15/21 10:51 CAB [id number]) Pre-Anesthesia Assessment Patient Information Reviewed Via Phone Assessment Assessment Completed With Patient H&P Completed Within 30 Days Yes Diagnostic Results BMP/CMP,CBC,EKG Comment Labs/EKG @ 03/08/21, COVID screen @ 03/18/21 Primary Care Provider Julius Poole Seen Specialist in Last 12 Months Yes Specialist Seen Fretted Instrument Inspector,Orthopedist, Insurance Adjustor Primary Language Albanian Paint Technician Required No Height 170.18 cm Weight 89.811 kg Body Mass Index (BMI) 31.0 Hearing Ability Normal Visual Assist Glasses Dentition Type Teeth, Natural Present Barriers to Learning None Hx Anesthesia Reactions No Hx Family Anesthesia Reaction No Hx Malignant Hyperthermia No Hx Blood Transfusions Yes: 2020 r/t anemia Hx Blood Transfusion Reaction No Anesthesia Review Requested Yes: Surgeon requested re: No reason provided alcohol intake current alcohol intake frequency a few times a week Smoking Status Never smoker Substance Use Type does not use Pain Present Pain Reported Musculoskeletal Symptoms Abnormal Gait,Back Pain, Difficulty Walking,Limited Range of Motion,Muscle Weakness,Tremors History of Falling (Recent or History of Yes ) Patient is completely paralyzed or No completely immobile Mental Status Oriented to own ability Comment Uses a hiking stick with prolonged ambulation Is patient on oxygen? No Does patient have GREGORY/SOB Yes: If climbing a hill Hx Sleep Apnea No Currently Taking a Beta Kalen Yes: Metoprolol Can You Climb a Flight of Stairs Without No SOB Hx Chest Pain No Hx SOB Yes: If climbing a hill Hx Syncope or Dizziness No Anti-Coagulant Therapy No Has a Fretted Instrument Inspector Yes: Dr. Felipe Hx Pacemaker/ICD No Pacemaker Rep Required? No Cardiac Clearance Received Yes Diet Type At Home Diabetic dysphagia No Gastrointestinal Symptoms Diarrhea,Reflux Urinary Catheter Present No Hx Urinary Self Catheterization No Diabetes Yes: Type I-pt states brittle diabetic HgbA1C 7.4 Date 03/08/21 Patient No Lactating No Presence of External or Internal Medical No: cardiac stent, Glucose Devices continuous monitor, left ankle Have you had any close contact with No someone diagnosed with COVID-19? Marital Status Lives With spouse Prior Living Arrangements House Number of Floors (Floors) Two Floors Support System Spouse Does the Patient Have Assistance After Yes Surgery Patient Discharge Plan Description Return Home Comment Pt advised 1-4 length of stay per surgeon Feels Safe in Current Environment Yes Been Physically Hurt or Threatened By a No Person in Current Environment Do you have thoughts of harming yourself None or others? Are you currently considering suicide? No Do you have a plan to hurt yourself or No Plan others? Do You Have Any Spiritual Beliefs That No May Affect Your HC Choices? Do You Have Any Cultural Practices That No May Affect Your HC Choices? Comment Pentecostalism Who Can We Speak to About Patient's Care Family, friends Identifying Code for Release of Patient Declines to issue Information Health Care Proxy/Next of Kin Nicolas () Health Care Proxy Emergency Contact Name Nicolas () Emergency Contact Advance Directives? No Power of Pmo Analyst Yes: Nicolas Power of Pmo Analyst Name Nicolas Arthur Power of Pmo Analyst Phone Number [phone] PAC Instructions Diabetes instructions,Durable medical equipment,Medications to take/avoid,Nasal antibiotic ,No ETOH/petroleum product on skin DOS,NPO,Post-op transportation,Sensory aids, Sturdy shoes/comfortable clothes,Do not bring valuables and remove jewelry
--- NOTE | 2021-03-22 11:39 | PM.PNPO.1 ---
Subjective Subjective Date Patient Seen: 03/22/21 Time Patient Seen: 11:39 Interval history: Patient's pain is mild. Denies fever or chills. No nausea vomiting. Patient reports feeling a little sluggish this morning. at bedside says she is acting normally but seems tired. Exam Vital Signs (past 8 hours): - 03/22/21 04:13 03/22/21 08:00 Temperature 98.5 F 97.9 F Pulse Rate 86 81 Respiratory Rate 18 17 Blood Pressure 120/60 123/82 Pulse Oximetry 96 96 Oxygen Delivery Method Nasal Cannula Oxygen Flow Rate 1 Narrative Exam Narrative: 70-year-old female resting comfortably in bedside chair no apparent distress. Neurovascular status is intact bilateral lower extremities. Dressing this morning was moist and was changed by nursing staff. Dressing is Clean, dry, intact.. Objective Labs Result Diagrams: 03/22/21 05:40 Labs: Laboratory Results - last 24 hr 03/22/21 05:40 Hgb 9.8 L Hct 30.2 L PFSH Medical History Anxiety Arthritis CAD (coronary artery disease) Diabetes mellitus Easy bruisability GERD (gastroesophageal reflux disease) Heel pain History of left heart catheterization HTN (hypertension) Hyperlipidemia Neuropathy Spinal stenosis Surgical History H/O section History of ankle surgery Hx of appendectomy Hx of bilateral cataract extraction Hx of eye surgery Hx of heart artery stent (03/08/12) Hx of laminectomy (03/05/17) Hx of tonsillectomy Social History household members: spouse Smoking Status: Never smoker alcohol intake: current Assessment & Plan Post-op Postoperative Procedures: Procedures Operation Date: 11/22/20 07:45 <No data on this case meets the specified criteria> Operation Date: 03/21/21 07:45 Actual Procedure Side Surgeon p L3-4, L4-5 TLIF with posterior instrumentation Debbie Pichardo MD Postoperative day: 1 Postoperative status: doing well Postoperative status narrative: Patient progressing as expected Postoperative plan: routine post-op care Postoperative plan narrative: Mobilize with physical therapy. Limit bending, twisting, lifting. Disposition home today or tomorrow. Quality VTE Deep Vein Thrombosis/Pulmonary Embolism Present on Admission: No
--- NOTE | 2021-03-22 11:58 | OT.IP.EVAL ---
Current Diagnoses Other spondylosis with radiculopathy, lumbosacral region (03/21/21) Spinal stenosis, lumbar region without neurogenic claudication (03/21/21) Other specified postprocedural states (03/21/21) Surgery Performed Operation Date: 11/22/20 07:45 <No data on this case meets the specified criteria> Operation Date: 03/21/21 07:45 Actual Procedures p L3-4, L4-5 TLIF with posterior instrumentation - Debbie Pichardo MD Past Medical History (Last Reviewed 03/22/21 @ 11:43 by Janes Amin PA-C) Anxiety Arthritis CAD (coronary artery disease) Diabetes mellitus Easy bruisability GERD (gastroesophageal reflux disease) H/O section Heel pain History of ankle surgery History of left heart catheterization HTN (hypertension) Hx of appendectomy Hx of bilateral cataract extraction Hx of eye surgery Hx of heart artery stent (03/08/12) Hx of laminectomy (03/05/17) Hx of tonsillectomy Hyperlipidemia Neuropathy Spinal stenosis Surgical History (Last Reviewed 03/22/21 @ 11:43 by Janes Amin PA-C) H/O section History of ankle surgery Hx of appendectomy Hx of bilateral cataract extraction Hx of eye surgery Hx of heart artery stent (03/08/12) Hx of laminectomy (03/05/17) Hx of tonsillectomy Occupational Therapy Inpatient Evaluation/Re-Eval M1 PT/OT-IP Prior Functional Status Start: 03/22/21 11:50 Freq: NEEDED Status: Active Protocol: Document 03/22/21 11:17 [facility] (Rec: 03/22/21 13:01 [facility] [id number]) Medical Review Prior Functional Status Medical History Reviewed Yes Communication able to answer questions but requires cues to keep eyes open; requires increase time to respond to questions and instructions Mobility and Gait Pt use of walking stick outside and only able to walk for 1/4 miles before her back would stiffen up. Activities of Daily Living and IADL's Pt states has to sit and would be okay with her ADl's and IADl needs. Social History Household Members spouse Living Arrangements House Number of Floors (Floors) Two Floors Number of Stairs To Enter/Railing? has 1 step to enter the house; has 14 steps L rail descending to TV room area Home Environment High Toilet,Walk in Shower Home Equipment Front Wheel Walker,Shower Seat without Backrest,Hand Held Shower,Long Handled Sponge, Long Handled Shoe Horn,Grab Bars In Shower M2 OT-IP Current Condition Start: 03/22/21 12:42 Freq: Status: Active Protocol: Document 03/22/21 11:17 [facility] (Rec: 03/22/21 13:01 [facility] [id number]) Occupational Therapy Current Condition Current Condition Evaluation Date 03/22/21 Post Operative Precautions Lumbar Precautions Log Roll,No Twisting,Limit Bending,Lifting Restriction of 10 lbs,Gait Belt above Incisional Area M3 OT- IP Subjective and Pain Start: 03/22/21 12:42 Freq: Status: Active Protocol: Document 03/22/21 11:17 [facility] (Rec: 03/22/21 13:01 [facility] [id number]) OT- Subjective Occupational Therapy Visit Type Type Initial Evaluation Visit Start Time 11:17 Visit Stop Time 11:58 Total Visit Minutes 41 Occupational Therapy Visit Comments Patient Comments Pt's present in the room for OT eval. Patient/Caregiver Goals To go home. OT Pain Assessment Pain When Pain Assessed At Rest Pain Present Pain Present Pain Reported Location lower back Intensity 4 Scale Used Numeric (0 - 10) M4 OT- IP ADL's Start: 03/22/21 12:42 Freq: Status: Active Protocol: Document 03/22/21 11:17 [facility] (Rec: 03/22/21 13:01 [facility] [id number]) OT [id number] Comments OT Self-Feeding Comments Pt able to eat after set-up. Pt a bit groggy and did not recognize that there was mash potatoes on her lunch tray. OT ADL-Grooming General Evaluation Grooming Ability Standby Assistance Comments OT Grooming Comments Pt able to stand with MODA and FWW and cues to hold to the counter to assist with her balance. OT ADL-Oral Care Comments Oral Care Comments Not performed. OT ADL-Dressing General Eval Lower Body Dressing Ability Maximum Assistance Comments OT Dressing Comments Initiated education of nuclear engineering technician and sock aid with pt. Pt a bit confused and needing MAXvc to help sequence through the task. OT ADL-Toileting General Evaluation Toileting Ability Total Assistance Comments OT Toileting Comments Orozco in place. OT ADL-Bathing Comments OT Bathing Comments NOt at this time. M5 OT- IP IADL's Start: 03/22/21 12:42 Freq: Status: Active Protocol: Document 03/22/21 11:17 [facility] (Rec: 03/22/21 13:01 [facility] [id number]) OT-Instrumental Activities of Daily Living Home Safety Awareness Awareness of Need for Assistance at Home Decreased Awareness Home Safety Comments Pt's will be home to assist her as need and available 26/03. Medication Management Medication Management Caregiver Administers Money Management Money Management Caregiver Provides Assistance Meal Preparation Meal Preparation Caregiver Provides Assist Surveillance Operator Surveillance Operator Caregiver Provides Assist M6 OT- IP Functional Cognition Start: 03/22/21 12:42 Freq: Status: Active Protocol: Document 03/22/21 11:17 [facility] (Rec: 03/22/21 13:01 [facility] [id number]) Cognitive Factors Limiting Selfcare Function Cognitive Ability Level of Alertness Alert,Confusional State,Drowsy Patient Orientation Name,Place,Situation Attention Span Ability Capable of Focused Attention, Capable of Sustained Attention ,Unable to Focus,Unable to Sustain Attention Ability to Follow Commands Able to Follow One Step Commands with Increased Time, Able to Follow One Step Commands with Repetition Memory Description Short Term Impaired,Working Impaired Safety Awareness Decreased Recall of Precautions,Decreased Ability to Apply Precautions, Underestimates Need for Assistance Problem Solving Ability Needs Assist to Identify Solutions Cognitive Comments Cognitive Assessment Comments Pt a bit confused and needing step by step commands to follow. Pt feels that she is not thinking very fast and able to tell the PA that usually when she plays Scrabble that she scores 900 but only able to score 300 for now. Pt's states when pt had prior surgeries was a confused initially. Pt only able to recall one back precaution. Pt getting the ropes of the sock aid and catheter confused. Nursing aware that pt has been confused. Educated pt's to try not to give pt so many cues , give pt time to process commands, and give short concrete commands as pt currently having difficulty to process information in a timely manner. OT- Vision and Hearing OT- Hearing Assessment OT- Hearing Assessment WFL OT- Vision Assessment Visual Acuity Glasses All The Time M7 OT- IP Mobility and Balance Start: 03/22/21 12:42 Freq: Status: Active Protocol: Document 03/22/21 11:17 [facility] (Rec: 03/22/21 13:01 [facility] [id number]) OT-Transfer Assessment Sit to and From Stand Sit to and from Stand Minimal Assistance,Moderate Assistance,1 Person Assistance Transfers Transfer Ability Moderate Assistance,2 Person Assistance Technique Transfer Destination Chair Transfer Technique Stand Step Pivot Devices Transfer Assistive Devices Gait Belt,Front Wheeled Walker Comments Mobility Comments Begin training pt's hushand how to lennie /doff the gait belt. OT- Balance Assessment Sitting Balance and Reactions Static Sitting Balance Ability Good Dynamic Sitting Balance Ability Fair Standing Balance and Reactions Static Standing Balance Ability Poor M8 OT- IP Objective Assessments Start: 03/22/21 12:42 Freq: Status: Active Protocol: Document 03/22/21 11:17 [facility] (Rec: 03/22/21 13:01 [facility] [id number]) OT Gross Range of Motion Upper Extremity Range of Motion Assessment Within Functional Limits OT Strength Upper Extremity Strength Assessment Within Functional Limits OT- Coordination Assessment Upper Extremity Finger to Nose Test Within Functional Limits M9 OT- IP Assessment and Plan Start: 03/22/21 12:42 Freq: Status: Active Protocol: Document 03/22/21 11:17 [facility] (Rec: 03/22/21 13:01 [facility] [id number]) OT Summary Assessment and Plan Potential Rehabilitation Potential Good Analytic Complexity at Evaluation Low Summary OT Impairments Pain,Balance,Functional Cognition,Functional Mobility, Grooming,Dressing,Toileting, Bathing,Toilet Transfers, Shower Transfers,Activity Tolerance Progress Towards Goals Slow Progress due to Pain,Slow Progress due to Medical Issues,Slow Progress due to Activity Tolerance,Slow Progress due to Cognition Assessment Summary Pt low complexity and main barriers are steps, pain, needing increased time to process information., now needing extensive assist for mobility needs and assist and MAX vc to help sequence through tasks. Pending caregiver training and medical stability, pt will either go home with 24/7 asisst or possible have short skilled rehab stay. Goals Self-Feeding Goal Independent Grooming Goal Independent Dressing Goal Independent Toileting Goal Independent Bathing Goal Standby Assistance Toilet Transfer Goal Independent Shower Transfer Goal Independent Patient/Caregiver Education Goal Demonstrate Post-Op Precautions,Caregiver Independent Assisting Patient Days to Meet Goals 10 Frequency of Treatment Frequency Of Treatment Once a Day Treatment Plan OT Treatment Plan ADL Training,Functional Cognition Training,Functional Mobility,Patient/Family Education,Discharge Planning Other Treatment Recommendations and Next Continue caregiver training Treatment Focus with pt's . Discharge Recommendations OT Discharge Recommendations Home with 24/7 Assist Available,Home Health,SNF Rehab,Home vs SNF Home Equipment Needs [facility] Transportation Needs at Discharge Private Vehicle,Wheelchair/ Cabulance
--- NOTE | 2021-03-22 14:05 | PT.IPTN ---
Current Diagnoses Other spondylosis with radiculopathy, lumbosacral region (03/21/21) Spinal stenosis, lumbar region without neurogenic claudication (03/21/21) Other specified postprocedural states (03/21/21) Surgery Performed Operation Date: 11/22/20 07:45 <No data on this case meets the specified criteria> Operation Date: 03/21/21 07:45 Actual Procedures p L3-4, L4-5 TLIF with posterior instrumentation - Debbie Pichardo MD Physical Therapy Treatment Note M2 PT-IP Current Condition Start: 03/22/21 11:50 Freq: NEEDED Status: Active Protocol: Document 03/22/21 09:05 AB (Rec: 03/22/21 12:00 AB [id number]) Physical Therapy Current Condition Current Condition Evaluation Date 03/22/21 Treatment Diagnosis L3-4, 4-5 fusion/lami; difficulty in walking Onset Date 03/21/21 Precautions Lumbar Precautions Log Roll,No Twisting,Limit Bending,Lifting Restriction of 10 lbs,Gait Belt above Incisional Area M3 PT-IP Subjective Start: 03/22/21 11:50 Freq: NEEDED Status: Active Protocol: Document 03/22/21 14:05 AB (Rec: 03/22/21 16:15 AB [id number]) Subjective Physical Therapy Visit Type Type Treatment Note Visit Start Time 14:05 Visit Stop Time 14:46 Total Visit Minutes 41 Number of AERONAUTICAL ENGINEER Visits 0 Physical Therapy Visit Comments Patient Comments agreeable to do PT Therapy Pain Assessment Pain When Pain Assessed At Rest Pain Present Pain Present Pain Reported Location lower back Scale Used pain scale not stated M4 PT-IP Mobility and Gait Start: 03/22/21 11:50 Freq: NEEDED Status: Active Protocol: Document 03/22/21 14:05 AB (Rec: 03/22/21 16:15 AB [id number]) PT-Bed Mobility Assessment Rolling Type of Rolling Log Rolling Level of Assist Moderate Assistance Supine to Sit Supine to Sit Minimal Assistance PT-Transfer Assessment Sit to and From Stand Sit to and from Stand Moderate Assistance,1 Person Assistance,Use of Upper Extremities Equipment Transfer Assistive Device Front Wheeled Walker Orthotic/Prosthetic Devices or Brace: No Transfers Transfer Destination Chair Transfer Technique ambulated using FWW Transfer Ability Level of Assist Minimal Assistance,Moderate Assistance,1 Person Assistance ,Use of Upper Extremities Comments Mobility Comments bed mobility training x 2 sets : completed with mod A and max cues. Spouse tends to tell pt what to do while PT is instructed and informed spouse regarding providing pt too much cues as pt has difficulty processing instructions at this time. pt completed sit to stand mod A and cues and ambulated in room using FWW ~ 40 ft min to mod A and cues. presents with decrease LE elevation. pt also tends to move FWW too far away and runs into things with the FWW. requires assist with FWW maneuvering. pt agreed to sit on the chair. positioned on the chair. call light and table placed within reach. spouse agreed to do caregiver training and stated that he will be in the hospital from 8 am onwards and will be available for training. Gait Assessment Gait Gait Assistance Required: Minimum Assistance,Moderate Assistance,1 Person Assist Distance (Feet) 40 Able to Maintain Weight Bearing Status Yes During Gait Assistive Devices Assistive Device Gait Belt,Front Wheeled Walker Orthotic/Prosthetic Devices or Brace: No Gait Deviations General Gait Pattern Antalgic,Decreased Stride Length,Decreased Feet Clearance,Step-to Gait Factors Limiting Gait Function Factors Limiting Gait Function Decreased Activity Tolerance, Decreased Strength,Difficulty Following Directions,Limited Range of Motion,Pain,Poor Balance,Poor Safety Awareness Comments Gait Comments pls refer to mobility section for details M5 PT-IP Objective Assessments Start: 03/22/21 11:50 Freq: NEEDED Status: Active Protocol: Document 03/22/21 09:05 AB (Rec: 03/22/21 12:00 AB [id number]) Orientation Orientation/Cognition Level of Alertness Lethargic Orientation Name Safety Awareness Decreased Safety Awareness Memory Description Short Term Impaired Gross Range of Motion Lower Extremity ROM Assessment Within Functional Limits Strength Lower Extremity Strength Hip 3+/5 Knee 4-/5 Muscle Tone Muscle Tone WNL Yes M6 PT-IP Treatment Start: 03/22/21 11:50 Freq: NEEDED Status: Active Protocol: Document 03/22/21 14:05 AB (Rec: 03/22/21 16:15 AB [id number]) Physical Therapy Treatment Education Education Provided Precautions,Safety M7 PT-IP Assessment and Plan Start: 03/22/21 11:50 Freq: NEEDED Status: Active Protocol: Document 03/22/21 14:05 AB (Rec: 03/22/21 16:15 AB [id number]) PT Summary Assessment and Plan Potential Rehabilitation Potential Good Summary Impairments Pain,ROM,Strength,Balance, Coordination,Sensation,Tone, Cognition,Bed Mobility, Transfers,Gait,Activity Tolerance Progress Towards Goals Slow Progress due to Pain,Slow Progress due to Activity Tolerance Assessment Summary pt improving slowly but continues to have difficulty following directions. pt requiring min to mod A with mobility using FWW. pt plans to go home with spouse to assist her. caregiver training will be conducted tomorrow. pt also has 1 step to enter the house and will complete when appropriate. will continue to assess progress. Goals Bed Mobility Goal Standby Assistance Transfer Goal Independent,Front Wheeled Walker Gait Goal Standby Assistance,Front Wheel Walker Gait Distance 150 Other Goals up/down 1 step using FWW SBA up/down 14 steps R rail ascending SBA Days to Meet Goals 10 Frequency of Treatment Frequency Of Treatment Twice a Day Treatment Plan Physical Therapy Treatment Plan Bed Mobility Training,Transfer Training,Gait Training, Therapeutic Exercise,Balance Retraining,Post Op Education, Discharge Planning,Hot or Cold Pack,Neuromuscular Re-ed, Coordination Retraining,Manual Therapy Precautions Lumbar Precautions Log Roll,No Twisting,Limit Bending,Lifting Restriction of 10 lbs,Gait Belt above Incisional Area Recommendations To Nursing Amount of Assist Needed 1 Person Assist Discharge Recommendations PT Discharge Recommendations Home with 26/03 Assist Available,Home Health Transportation Needs at Discharge Private Vehicle
[2021-03-22 15:40] VITALS: BP 134/54; PULSE 88; RESP 18; TEMP 36.3; O2SAT 95
[2021-03-22] MEDS: OXYCODONE IR 5 MG TABLET 10 MG PO ×2 (15:57→21:54)
[2021-03-22] MEDS: METOPROLOL IR 25 MG TABLET PO (16:52)
[2021-03-22] MEDS: ATORVASTATIN 20 MG TABLET PO (21:43)
[2021-03-22] MEDS: SENNOSIDES 8.6 MG TABLET 17.2 MG PO (21:44)
[2021-03-22 21:45] VITALS: BP 130/47; PULSE 84; RESP 18; TEMP 36.6; O2SAT 95
[2021-03-23] VITALS (7 sets, daily range): BP systolic 127–138; BP diastolic 51–58; PULSE 79–86; RESP 14–18; TEMP 36.1–37; O2SAT 88–97
--- NOTE | 2021-03-23 03:31 | PC.NURSE ---
Pt. preferred to sleep in the recliner, reports having hard time moving in bed & I'm panicking if I can't get OOB. Denies any pain when assessed @ 0050. Pt. very lethargic all shift, checked her CBG it was 156. Continue to denies pain states I'm okay sitting in this chair. Will cont. POC & monitor,
[2021-03-23] MEDS: OXYCODONE IR 5 MG TABLET 10 MG PO (03:59)
[2021-03-23] MEDS: PANTOPRAZOLE DR 20 MG TABLET PO (06:07)
--- NOTE | 2021-03-23 06:59 | PC.NURSE ---
Pam discontinued @ 9870 cath. intact & tolerated procedure well. Instructed to call foe assistance if she needed to get up OOb to the BSC. Will report to day MILLY.
[2021-03-23] MEDS: AMLODIPINE 5 MG TABLET PO (08:32)
[2021-03-23] MEDS: LOSARTAN 50 MG TABLET PO ×2 (08:32→20:18)
[2021-03-23] MEDS: FERROUS SULFATE 325 MG TABLET PO (08:32)
[2021-03-23] MEDS: DOCUSATE 100 MG CAPSULE PO ×2 (08:32→20:18)
[2021-03-23] MEDS: ESCITALOPRAM 10 MG TABLET PO (08:32)
[2021-03-23] MEDS: INSULIN LISPRO 100 UNIT/ML 3ML VIAL SUBCUT ×6 (08:33→17:06)
[2021-03-23] MEDS: INSULIN GLARGINE 100 UNIT/ML 3ML PEN 18 UNIT SUBCUT (08:34)
--- NOTE | 2021-03-23 09:38 | CM.DPNOTE ---
Faxed referral packet to [facility]'s request and received confirm. Ashley Seo CM Asst.
--- NOTE | 2021-03-23 11:14 | PC.NURSE ---
Patient is alert and oriented but groggy from pain medication given earlier this am. Order has been decreased to 2.5mg of oxycodone. She has not required any pain medication from this RN, she is sitting up in a chair and visiting with her . Dressing to lower back will be changed prior to discharge. Denies any numbness or tingling.
--- NOTE | 2021-03-23 11:27 | PM.DS.1 ---
History of Present Illness History of Present Illness Date Patient Seen: 03/23/21 Time Patient Seen: 08:30 Chief complaint: LUMBAR TLIF *OPB* Narrative: Patient's pain is 5/10. Denies fever chills. No nausea vomiting. Discharge Providers Provider Date of admission: 03/21/21 05:42 Discharge Date: 03/23/21 Primary care physician: Julius Poole MD Consults: 03/15/21 13:46 Consult to Anesthesiology Routine Comment: Consulting Provider: Anesthesiologist Reason for consultation: Surgeon requested re: No reason provided 03/21/21 14:14 Consult to Occupational Therapy Evaluate & Treat Comment: Physician Instructions: Evaluate and treat Consult to Physical Therapy Evaluate & Treat Comment: Physician Instructions: Evaluate and Treat Discharge provider: Janes Amin PA-C Summary Hospital Course Discharge Diagnosis: 1. L3-4, L4-5 hx of laminectomies and radiculopathy 2. L3-4, L4-5 spinal stenosis with radiculopathy Hospital Course: 5 interbody cage placement. 3. L3-4, L4-5 decompressive laminectomy with bilateral facetecomies 4. L3-4, L4-5 Posterior segmental instrumentation 5. Eagle of bone marrow from iliac crest 6. Utilization of microsurgical technique and operating microscope 7. Robotic navigation assisted implant placement Same procedure as scheduled: Yes Indications: Patient has been having chronic back pain and worsening lumbar radiculopathy. Patient had previous laminectomies with temporary relief of her symptoms with worsening of her back pain and leg pain over the last year. Patient failed multiple conservative management with worsening pain weakness and numbness in her lower extremity. Patient has been having difficulty performing activity of daily living. After discussing risks benefits of treatment options, patient elected proceed with surgery. Surgeon: Debbie Pichardo Welding Machine Operator: [place] Click Yes if Unassisted: No Anesthesia Type: General Operative Notes Closure Type: primary Specimen(s): none sent Prosthetic devices, grafts, tissues, transplants, or devices: GLobus CREO screws, RIse cages Applied: catheter Estimated Blood Loss (mL): 200 Blood products transfused: none Patient progressing as expected status post surgery. Discharge home today in stable condition. Status at Discharge Cognitive/behavioral status at discharge: at baseline, oriented Functional status at discharge: uses cane/walker Overall status at discharge: patient is progressing back to baseline Exam Vital Signs (past 8 hours): - 03/23/21 04:00 03/23/21 07:21 03/23/21 09:27 Temperature 97.5 F L 97.1 F L Pulse Rate 79 80 Respiratory Rate 18 15 Blood Pressure 131/55 L 138/53 L Pulse Oximetry 94 88 L 97 Oxygen Delivery Method Nasal Cannula Oxygen Flow Rate 1 Narrative Exam Narrative: Patient in no apparent distress. Alert. Dressing Clean, dry, intact.. Neurovascular status is intact bilateral lower extremities. Objective Labs Result Diagrams: 03/22/21 05:40 [facility] Medical History Anxiety Arthritis CAD (coronary artery disease) Diabetes mellitus Easy bruisability GERD (gastroesophageal reflux disease) Heel pain History of left heart catheterization HTN (hypertension) Hyperlipidemia Neuropathy Spinal stenosis Surgical History H/O section History of ankle surgery Hx of appendectomy Hx of bilateral cataract extraction Hx of eye surgery Hx of heart artery stent (03/08/12) Hx of laminectomy (03/05/17) Hx of tonsillectomy Social History household members: spouse Smoking Status: Never smoker alcohol intake: current Discharge Assessment & Plan Assessment and Plan Assessment: Progressing as expected. Plan of Treatment: Discharge home today in stable condition. Discharge Plan Discharge Plan Patient Disposition: Home Discharge orders & Medications Prescriptions: New acetaminophen 325 mg Tablet 650 mg PO Q6HR PRN (Reason: Pain, Mild (1-3)) Qty: 60 RF: 0 oxycodone 5 mg capsule 5 mg PO Q3H PRN (Reason: pain) Qty: 30 RF: 0 Continued omeprazole 20 MG capsule,delayed release(DR/EC) 20 mg PO Q DAY Qty: 0 RF: 0 escitalopram oxalate [Lexapro] 10 MG tablet 10 mg PO QDAY Qty: 0 RF: 0 rosuvastatin [Crestor] 10 MG tablet 10 mg PO QDAY Qty: 0 RF: 0 nitroglycerin [Nitrostat] 0.4 MG tablet, sublingual 0.4 mg Sublingual Q5MIN X3 PRN (Reason: Chest Pain) Qty: 0 RF: 0 irbesartan 150 mg Tablet 150 mg PO BID RF: 0 metoprolol tartrate 25 mg Tablet 25 mg PO QPM RF: 0 Basaglar KwikPen U-100 Insulin 100 unit/mL (3 mL) Insulin Pen 18 unit SUBCUT QAM RF: 0 Apidra SoloStar U-100 Insulin 100 unit/mL Insulin Pen 4 - 6 unit SUBCUT TID RF: 0 aspirin 81 mg Tablet,Delayed Release (Dr/Ec) 162 mg PO BEDTIME RF: 0 ferrous sulfate 325 mg (65 mg iron) Tablet 325 mg PO DAILY RF: 0 amlodipine 5 mg tablet 5 mg PO QAM RF: 0 Follow up/Referrals: Debbie Pichardo MD [Physician] - (2 weeks) Julius Poole MD [Primary Care Provider] - Diet/Activity/Treatments Diet: Diet as Tolerated Activity: Limit bending, twisting, lifting Cold/Heat Therapy: Ice as needed Skin/Wound/Dressing Care Report to your healthcare provider any signs of infection, such as:: chills, fever, increased pain, unusual drainage and unusual redness Dressing: Keep clean and dry Visit Report/Discharge Packet Instructions: DI for Heart Failure, DI for Prescription Opioid Use, DI for Transforaminal Lumbar Interbody Fusion Stand Alone Forms: Surgery Discharge Discharge Data Primary Care Provider: Julius Poole Quality VTE Deep Vein Thrombosis/Pulmonary Embolism Present on Admission: No
--- NOTE | 2021-03-23 12:00 | CM.DPC ---
Addendum entered by FLIP العلي 03/23/21 14:29: ADD: PT/OT spoke to Ortho PA regarding their recommendation of HH and Ortho agreeable to HH at d/c. SW called [facility] with update on HH now and they confirm they can still accept and LORENA Ashley kindly faxed completed F2F and MD orders. BF Original Note: DCP Discharge Home Per Ortho PA, pt medically stable to d/c home post TLIF today with spouse assist and no identified barriers to discharge. Per PT yesterday, recommending home with spouse assist and HH. SW met bedside with pt and spouse and explained role and discussed possible d/c home today and HH services. Spouse confirms that they have no hx of HH but feel HH could be very beneficial at d/c and no HH preference. SARITA called [facility] based on Vendor Calendar and earlier availability than the other HH agency that covers [facility]. [facility] confirmed they can accept pt to service and SW faxed referral. SARITA spoke to Ortho PA who states he does not feel pt needs HH at this time as she cannot begin PT for a few weeks anyways and feels pt is not currently homebound. SARITA updated [facility] via faxed d/c summary but did not F2F or orders but Ortho will determine if HH needed at pt's follow up appointment. SARITA attempted to update pt and spouse but both sleeping soundly and SW updated RN who kindly agrees to provide [facility] brochure to pt and spouse and update that Ortho follow up appointment will help determine if HH needed at that time. Plan: Patient to d/c home via spouse POV and Ortho follow up appointment to determine if HH needed at that time. FLIP العلي
--- NOTE | 2021-03-23 12:15 | OT.IP.TRT ---
Current Diagnoses Other spondylosis with radiculopathy, lumbosacral region (03/21/21) Spinal stenosis, lumbar region without neurogenic claudication (03/21/21) Other specified postprocedural states (03/21/21) Surgery Performed Operation Date: 11/22/20 07:45 <No data on this case meets the specified criteria> Operation Date: 03/21/21 07:45 Actual Procedures p L3-4, L4-5 TLIF with posterior instrumentation - Debbie Pichardo MD Occupational Therapy Treatment Note M2 OT-IP Current Condition Start: 03/22/21 12:42 Freq: Status: Active Protocol: Document 03/22/21 11:17 [facility] (Rec: 03/22/21 13:01 [facility] [id number]) Occupational Therapy Current Condition Current Condition Evaluation Date 03/22/21 Treatment Diagnosis s/p L3-4, L4-5 fusion,lami, decreased mobility Diagnosis Onset Date 03/21/21 Post Operative Precautions Lumbar Precautions Log Roll,No Twisting,Limit Bending,Lifting Restriction of 10 lbs,Gait Belt above Incisional Area M3 OT- IP Subjective and Pain Start: 03/22/21 12:42 Freq: Status: Active Protocol: Document 03/23/21 13:09 [facility] (Rec: 03/23/21 13:23 [facility] [id number]) OT- Subjective Occupational Therapy Visit Type Type Treatment Note Visit Start Time 10:23 Visit Stop Time 12:15 Total Visit Minutes 54 Notes Pt seen for split treatment from [id number] and [id number]. Occupational Therapy Visit Comments Patient Comments Pt wanting to get up to use the bathroom. Pt present for caregiver training . Patient/Caregiver Goals To go home. OT Pain Assessment Pain When Pain Assessed During Mobility Pain Present Pain Present Pain Reported Location lower back Intensity 5 Scale Used Numeric (0 - 10) M4 OT- IP ADL's Start: 03/22/21 12:42 Freq: Status: Active Protocol: Document 03/23/21 13:09 [facility] (Rec: 03/23/21 13:23 [facility] [id number]) OT [id number] Comments OT Self-Feeding Comments Not at meal time. OT ADL-Grooming General Evaluation Grooming Ability Standby Assistance OT ADL-Oral Care Comments Oral Care Comments Not performed. OT ADL-Dressing Comments OT Dressing Comments Pt still needing assist for LB dressing needs. Pt's states to assist and issued can carrier and sock aid for pt. Pt has slide on shoes, however per pt's states that they fit on well. OT ADL-Toileting General Evaluation Toileting Ability Standby Assistance Comments OT Toileting Comments Pt able to wipe and has a bidet at home. Pt would benefit from a BSC as easier to come to stand . Pt's to look into getting one. OT ADL-Bathing Comments OT Bathing Comments Pt not wanting to shower. M5 OT- IP IADL's Start: 03/22/21 12:42 Freq: Status: Active Protocol: Document 03/22/21 11:17 [facility] (Rec: 03/22/21 13:01 [facility] [id number]) OT-Instrumental Activities of Daily Living Home Safety Awareness Awareness of Need for Assistance at Home Decreased Awareness Home Safety Comments Pt's will be home to assist her as need and available 26/03. Medication Management Medication Management Caregiver Administers Money Management Money Management Caregiver Provides Assistance Meal Preparation Meal Preparation Caregiver Provides Assist Senior Principal Process Engineer Senior Principal Process Engineer Caregiver Provides Assist M6 OT- IP Functional Cognition Start: 03/22/21 12:42 Freq: Status: Active Protocol: Document 03/23/21 13:09 [facility] (Rec: 03/23/21 13:23 [facility] [id number]) Cognitive Factors Limiting Selfcare Function Cognitive Ability Level of Alertness Alert,Drowsy Patient Orientation Name,Place,Situation Attention Span Ability Capable of Focused Attention, Capable of Sustained Attention Ability to Follow Commands Able to Follow One Step Commands with Increased Time, Able to Follow One Step Commands with Repetition Safety Awareness Decreased Ability to Apply Precautions,Underestimates Need for Assistance Problem Solving Ability Needs Assist to Identify Solutions Cognitive Comments Cognitive Assessment Comments Pt able to follow directions better today but still groggy. Pt's still needing cues to give pt less cues , and be sure to hold onto the pt. M7 OT- IP Mobility and Balance Start: 03/22/21 12:42 Freq: Status: Active Protocol: Document 03/23/21 13:09 [facility] (Rec: 03/23/21 13:23 [facility] [id number]) OT- Bed Mobility Assessment Sit to Supine Sit to Supine Assist Minimal Assistance OT-Transfer Assessment Sit to and From Stand Sit to and from Stand Minimal Assistance,Moderate Assistance,1 Person Assistance Transfers Transfer Ability Minimal Assistance,1 Person Assistance Technique Transfer Destination Bed,Chair,Toilet Transfer Technique Stand Step Pivot Devices Transfer Assistive Devices Gait Belt,Front Wheeled Walker Comments Mobility Comments Pt's able to assist for bed mobility needs but needing cues for proper body mechanics and hand placement. Pt's also needing cues how to give pt appropriate assist as needed as pt tired quickly and needing concrete cues to follow. OT- Balance Assessment Sitting Balance and Reactions Static Sitting Balance Ability Good Dynamic Sitting Balance Ability Fair Standing Balance and Reactions Static Standing Balance Ability Fair M8 OT- IP Objective Assessments Start: 03/22/21 12:42 Freq: Status: Active Protocol: Document 03/22/21 11:17 [facility] (Rec: 03/22/21 13:01 [facility] [id number]) OT Gross Range of Motion Upper Extremity Range of Motion Assessment Within Functional Limits OT Strength Upper Extremity Strength Assessment Within Functional Limits OT- Coordination Assessment Upper Extremity Finger to Nose Test Within Functional Limits M9 OT- IP Assessment and Plan Start: 03/22/21 12:42 Freq: Status: Active Protocol: Document 03/23/21 13:09 [facility] (Rec: 03/23/21 13:23 [facility] [id number]) OT Summary Assessment and Plan Potential Rehabilitation Potential Good Analytic Complexity at Evaluation Low Summary OT Impairments Pain,Balance,Functional Cognition,Functional Mobility, Grooming,Dressing,Toileting, Bathing,Toilet Transfers, Shower Transfers,Activity Tolerance Progress Towards Goals Progressing Toward Goals,Slow Progress due to Cognition Assessment Summary Pt doing better , however pt's and pt would still benefit from continued caregiver training and especially home health to assist with safety needs, more education for pt's spouse to be able to assist the pt. Pt's spouse is forgetful at time and not holding onto the gait belt and tends to give pt too many cues, in addition pt's needs more training for proper hand placement to assist for bed mobility needs. Pt to go home with assist with home health. Goals Self-Feeding Goal Independent Grooming Goal Independent Dressing Goal Independent Toileting Goal Independent Bathing Goal Standby Assistance Toilet Transfer Goal Independent Shower Transfer Goal Independent Patient/Caregiver Education Goal Demonstrate Post-Op Precautions,Caregiver Independent Assisting Patient Days to Meet Goals 5 Frequency of Treatment Frequency Of Treatment Once a Day Treatment Plan OT Treatment Plan ADL Training,Functional Cognition Training,Functional Mobility,Patient/Family Education,Discharge Planning Other Treatment Recommendations and Next Continue caregiver training Treatment Focus with pt's . Discharge Recommendations OT Discharge Recommendations Home with 24/7 Assist Available,Home Health Home Equipment Needs BSC Transportation Needs at Discharge Private Vehicle
--- NOTE | 2021-03-23 12:25 | PT.IPTN ---
Current Diagnoses Other spondylosis with radiculopathy, lumbosacral region (03/21/21) Spinal stenosis, lumbar region without neurogenic claudication (03/21/21) Other specified postprocedural states (03/21/21) Surgery Performed Operation Date: 11/22/20 07:45 <No data on this case meets the specified criteria> Operation Date: 03/21/21 07:45 Actual Procedures p L3-4, L4-5 TLIF with posterior instrumentation - Debbie Pichardo MD Physical Therapy Treatment Note M2 PT-IP Current Condition Start: 03/22/21 11:50 Freq: NEEDED Status: Active Protocol: Document 03/22/21 09:05 AB (Rec: 03/22/21 12:00 AB [id number]) Physical Therapy Current Condition Current Condition Evaluation Date 03/22/21 Treatment Diagnosis L3-4, 4-5 fusion/lami; difficulty in walking Onset Date 03/21/21 Precautions Lumbar Precautions Log Roll,No Twisting,Limit Bending,Lifting Restriction of 10 lbs,Gait Belt above Incisional Area M3 PT-IP Subjective Start: 03/22/21 11:50 Freq: NEEDED Status: Active Protocol: Document 03/23/21 11:35 SP (Rec: 03/23/21 14:12 SP [id number]) Subjective Physical Therapy Visit Type Type Treatment Note Visit Start Time 11:35 Visit Stop Time 12:25 Total Visit Minutes 50 Notes provided assist during caregiver training throughout tx, required SOLAR SALES ASSESSOR provided min -mod cues for safety how helping pt. Number of SOLAR SALES ASSESSOR Visits 1 Physical Therapy Visit Comments Patient Comments agreeable to do PT Patient Goals go home with assist from her Therapy Pain Assessment Pain When Pain Assessed During Mobility Pain Present Pain Present Pain Reported Location lower back Scale Used pain scale not stated Description With Movement Pain Behaviors Facial Grimacing Pain Management Techniques Distraction,Modification of Treatment,Re-positioning, Timing of Activity with Medications M4 PT-IP Mobility and Gait Start: 03/22/21 11:50 Freq: NEEDED Status: Active Protocol: Document 03/23/21 11:35 SP (Rec: 03/23/21 14:12 SP [id number]) PT-Bed Mobility Assessment Rolling Type of Rolling Log Rolling,Roll to Left Level of Assist Moderate Assistance,1 Person Assistance Supine to Sit Supine to Sit Contact Guard Assistance, Moderate Assistance,Maximum Assistance,2 Person Assistance Scooting Scooting to Edge of Bed Contact Guard Assistance PT-Transfer Assessment Sit to and From Stand Sit to and from Stand Contact Guard Assistance, Minimal Assistance,Moderate Assistance,1 Person Assistance ,Use of Upper Extremities Equipment Transfer Assistive Device Gait Belt,Front Wheeled Walker Orthotic/Prosthetic Devices or Brace: No Transfers Transfer Destination Chair Transfer Technique ambulated using FWW Transfer Ability Level of Assist Contact Guard Assistance, Minimal Assistance,1 Person Assistance,Use of Upper Extremities Comments Mobility Comments Pt and continue to requiring Min-Mod cuing for safety support pt handling positioning during mobility. Pt pretty lethargic this tx, 2nd attempt to see. Completed log roll L Mod A x1, L SL>sit Max A x1 for trunk righting, CGA x1 w/cuing for LE repositioning to EOB, scoot to EOB CGA with max cuing for sequencing herself via BUE. Sit>stand from bed CG- Min A from bed using fWW, cues via for proper hand placement and upright posture in standing CGA SPT bed>chair , cued for backing up fully/ centering self and HP with slow descent into chair Min A. After 2 min rest recovery required, sit>stand Min A x1, cued BUE support from chair due to LE and trunk weakness, ambulated across room and back to chair CG-low min Ax1, wide base gait BLE decreased foot clearance equally, max cues for larger steps and small step pivot and reposition fWW . Pt returned to chair Min A for slow descent and cues for proper HP. Pt was upright with pillow support posteriorly and LEs elevated. Pt immediately fell asleep. Pt is unable to attempt 1 step mgt required to enter home at this time. Will continue to assess mobility for pm tx. Pt had call light and all needs in reach, chair alarm donned. in room when left. Gait Assessment Gait Gait Assistance Required: Contact Guard Assist,Minimum Assistance,1 Person Assist Distance (Feet) 30 Able to Maintain Weight Bearing Status Yes During Gait Assistive Devices Assistive Device Gait Belt,Front Wheeled Walker Orthotic/Prosthetic Devices or Brace: No Gait Deviations General Gait Pattern Antalgic,Decreased Stride Length,Decreased Feet Clearance,Step-to Gait,Wide Based Gait Factors Limiting Gait Function Factors Limiting Gait Function Decreased Activity Tolerance, Decreased Strength,Difficulty Following Directions,Limited Range of Motion,Pain,Poor Balance,Poor Safety Awareness Comments Gait Comments see mobility comments Stair Climbing Assessment Comments Stair Climbing Comments unable to assess 1 PF step mgt has to enter home due to decreased LE strength, endurance noted during gait. Will need to assess before DC. PT-Balance Assessment Sitting Balance and Reactions Static Sitting Balance Ability Good Dynamic Sitting Balance Ability Fair Standing Balance and Reactions Static Standing Balance Ability Fair Dynamic Standing Balance Ability Poor Device Used FWW M5 PT-IP Objective Assessments Start: 03/22/21 11:50 Freq: NEEDED Status: Active Protocol: Document 03/22/21 09:05 AB (Rec: 03/22/21 12:00 AB [id number]) Orientation Orientation/Cognition Level of Alertness Lethargic Orientation Name Safety Awareness Decreased Safety Awareness Memory Description Short Term Impaired Gross Range of Motion Lower Extremity ROM Assessment Within Functional Limits Strength Lower Extremity Strength Hip 3+/5 Knee 4-/5 Muscle Tone Muscle Tone WNL Yes M6 PT-IP Treatment Start: 03/22/21 11:50 Freq: NEEDED Status: Active Protocol: Document 03/23/21 11:35 SP (Rec: 03/23/21 14:12 SP [id number]) Physical Therapy Treatment Education Education Provided Precautions,Safety M7 PT-IP Assessment and Plan Start: 03/22/21 11:50 Freq: NEEDED Status: Active Protocol: Document 03/23/21 11:35 SP (Rec: 03/23/21 14:12 SP [id number]) PT Summary Assessment and Plan Potential Rehabilitation Potential Good Status of Condition at Evaluation Evolving Summary Impairments Pain,ROM,Strength,Balance, Coordination,Sensation,Tone, Cognition,Bed Mobility, Transfers,Gait,Activity Tolerance Progress Towards Goals Progressing Toward Goals,Slow Progress due to Pain,Slow Progress due to Activity Tolerance Assessment Summary Pt requires Max A x1 for bed mob, Min- Mod A x1 sit<> Stand , CG- Min A during gait. Unable to assess 1 step mgt due to decrease strength and activity tolerance during gait . Pt and require cuing for safety mobility but was able to assist her physical needs. Will see for pm tx. Pt would benefit from HHPT upon DC to progress strength, endurance and continued safety education for functional mobility. Goals Bed Mobility Goal Standby Assistance Transfer Goal Independent,Front Wheeled Walker Gait Goal Standby Assistance,Front Wheel Walker Gait Distance 150 Other Goals up/down 1 step using FWW SBA up/down 14 steps R rail ascending SBA Days to Meet Goals 10 Frequency of Treatment Frequency Of Treatment Twice a Day Treatment Plan Physical Therapy Treatment Plan Bed Mobility Training,Transfer Training,Gait Training, Therapeutic Exercise,Balance Retraining,Post Op Education, Discharge Planning,Hot or Cold Pack,Neuromuscular Re-ed, Coordination Retraining,Manual Therapy Other Recommendations and Next Treatment bed mob, transfers, gait, 1 PF Focus step mgt using fWW. Precautions Lumbar Precautions Log Roll,No Twisting,Limit Bending,Lifting Restriction of 10 lbs,Gait Belt above Incisional Area Recommendations To Nursing Amount of Assist Needed 1 Person Assist Discharge Recommendations PT Discharge Recommendations Home with 26/03 Assist Available,Home Health Transportation Needs at Discharge Private Vehicle
--- NOTE | 2021-03-23 13:15 | PT.IPTN ---
Current Diagnoses Other spondylosis with radiculopathy, lumbosacral region (03/21/21) Spinal stenosis, lumbar region without neurogenic claudication (03/21/21) Other specified postprocedural states (03/21/21) Surgery Performed Operation Date: 11/22/20 07:45 <No data on this case meets the specified criteria> Operation Date: 03/21/21 07:45 Actual Procedures p L3-4, L4-5 TLIF with posterior instrumentation - Debbie Pichardo MD Physical Therapy Treatment Note M2 PT-IP Current Condition Start: 03/22/21 11:50 Freq: NEEDED Status: Active Protocol: Document 03/22/21 09:05 AB (Rec: 03/22/21 12:00 AB [id number]) Physical Therapy Current Condition Current Condition Evaluation Date 03/22/21 Treatment Diagnosis L3-4, 4-5 fusion/lami; difficulty in walking Onset Date 03/21/21 Precautions Lumbar Precautions Log Roll,No Twisting,Limit Bending,Lifting Restriction of 10 lbs,Gait Belt above Incisional Area M3 PT-IP Subjective Start: 03/22/21 11:50 Freq: NEEDED Status: Active Protocol: Document 03/23/21 12:25 SP (Rec: 03/23/21 14:12 SP [id number]) Subjective Physical Therapy Visit Type Type Treatment Note Visit Start Time 12:25 Visit Stop Time 13:15 Total Visit Minutes 50 Notes provided assist during caregiver training throughout tx, required SUEDING MACHINE TENDER provided min -mod cues for safety how helping pt. Number of SUEDING MACHINE TENDER Visits 1 Physical Therapy Visit Comments Patient Comments agreeable to do PT Patient Goals go home with assist from her Therapy Pain Assessment Pain When Pain Assessed During Mobility Pain Present Pain Present Pain Reported Location lower back Scale Used pain scale not stated Description With Movement Pain Behaviors Facial Grimacing Pain Management Techniques Distraction,Modification of Treatment,Re-positioning, Timing of Activity with Medications M4 PT-IP Mobility and Gait Start: 03/22/21 11:50 Freq: NEEDED Status: Active Protocol: Document 03/23/21 11:35 SP (Rec: 03/23/21 14:12 SP [id number]) PT-Bed Mobility Assessment Rolling Type of Rolling Log Rolling,Roll to Left Level of Assist Moderate Assistance,1 Person Assistance Supine to Sit Supine to Sit Contact Guard Assistance, Moderate Assistance,Maximum Assistance,2 Person Assistance Scooting Scooting to Edge of Bed Contact Guard Assistance PT-Transfer Assessment Sit to and From Stand Sit to and from Stand Contact Guard Assistance, Minimal Assistance,Moderate Assistance,1 Person Assistance ,Use of Upper Extremities Equipment Transfer Assistive Device Gait Belt,Front Wheeled Walker Orthotic/Prosthetic Devices or Brace: No Transfers Transfer Destination Chair Transfer Technique ambulated using FWW Transfer Ability Level of Assist Contact Guard Assistance, Minimal Assistance,1 Person Assistance,Use of Upper Extremities Comments Mobility Comments Pt and continue to requiring Min-Mod cuing for safety support pt handling positioning during mobility. Pt pretty lethargic this tx, 2nd attempt to see. Completed log roll L Mod A x1, L SL>sit Max A x1 for trunk righting, CGA x1 w/cuing for LE repositioning to EOB, scoot to EOB CGA with max cuing for sequencing herself via BUE. Sit>stand from bed CG- Min A from bed using fWW, cues via for proper hand placement and upright posture in standing CGA SPT bed>chair , cued for backing up fully/ centering self and HP with slow descent into chair Min A. After 2 min rest recovery required, sit>stand Min A x1, cued BUE support from chair due to LE and trunk weakness, ambulated across room and back to chair CG-low min Ax1, wide base gait BLE decreased foot clearance equally, max cues for larger steps and small step pivot and reposition fWW . Pt returned to chair Min A for slow descent and cues for proper HP. Pt was upright with pillow support posteriorly and LEs elevated. Pt immediately fell asleep. Pt is unable to attempt 1 step mgt required to enter home at this time. Will continue to assess mobility for pm tx. Pt had call light and all needs in reach, chair alarm donned. in room when left. Gait Assessment Gait Gait Assistance Required: Contact Guard Assist,Minimum Assistance,1 Person Assist Distance (Feet) 30 Able to Maintain Weight Bearing Status Yes During Gait Assistive Devices Assistive Device Gait Belt,Front Wheeled Walker Orthotic/Prosthetic Devices or Brace: No Gait Deviations General Gait Pattern Antalgic,Decreased Stride Length,Decreased Feet Clearance,Step-to Gait,Wide Based Gait Factors Limiting Gait Function Factors Limiting Gait Function Decreased Activity Tolerance, Decreased Strength,Difficulty Following Directions,Limited Range of Motion,Pain,Poor Balance,Poor Safety Awareness Comments Gait Comments see mobility comments Stair Climbing Assessment Comments Stair Climbing Comments unable to assess 1 PF step mgt has to enter home due to decreased LE strength, endurance noted during gait. Will need to assess before DC. PT-Balance Assessment Sitting Balance and Reactions Static Sitting Balance Ability Good Dynamic Sitting Balance Ability Fair Standing Balance and Reactions Static Standing Balance Ability Fair Dynamic Standing Balance Ability Poor Device Used FWW M5 PT-IP Objective Assessments Start: 03/22/21 11:50 Freq: NEEDED Status: Active Protocol: Document 03/22/21 09:05 AB (Rec: 03/22/21 12:00 AB [id number]) Orientation Orientation/Cognition Level of Alertness Lethargic Orientation Name Safety Awareness Decreased Safety Awareness Memory Description Short Term Impaired Gross Range of Motion Lower Extremity ROM Assessment Within Functional Limits Strength Lower Extremity Strength Hip 3+/5 Knee 4-/5 Muscle Tone Muscle Tone WNL Yes M6 PT-IP Treatment Start: 03/22/21 11:50 Freq: NEEDED Status: Active Protocol: Document 03/23/21 11:35 SP (Rec: 03/23/21 14:12 SP [id number]) Physical Therapy Treatment Education Education Provided Precautions,Safety M7 PT-IP Assessment and Plan Start: 03/22/21 11:50 Freq: NEEDED Status: Active Protocol: Document 03/23/21 11:35 SP (Rec: 03/23/21 14:12 SP [id number]) PT Summary Assessment and Plan Potential Rehabilitation Potential Good Status of Condition at Evaluation Evolving Summary Impairments Pain,ROM,Strength,Balance, Coordination,Sensation,Tone, Cognition,Bed Mobility, Transfers,Gait,Activity Tolerance Progress Towards Goals Progressing Toward Goals,Slow Progress due to Pain,Slow Progress due to Activity Tolerance Assessment Summary Pt requires Max A x1 for bed mob, Min- Mod A x1 sit<> Stand , CG- Min A during gait. Unable to assess 1 step mgt due to decrease strength and activity tolerance during gait . Pt and require cuing for safety mobility but was able to assist her physical needs. Will see for pm tx. Pt would benefit from HHPT upon DC to progress strength, endurance and continued safety education for functional mobility. Goals Bed Mobility Goal Standby Assistance Transfer Goal Independent,Front Wheeled Walker Gait Goal Standby Assistance,Front Wheel Walker Gait Distance 150 Other Goals up/down 1 step using FWW SBA up/down 14 steps R rail ascending SBA Days to Meet Goals 10 Frequency of Treatment Frequency Of Treatment Twice a Day Treatment Plan Physical Therapy Treatment Plan Bed Mobility Training,Transfer Training,Gait Training, Therapeutic Exercise,Balance Retraining,Post Op Education, Discharge Planning,Hot or Cold Pack,Neuromuscular Re-ed, Coordination Retraining,Manual Therapy Other Recommendations and Next Treatment bed mob, transfers, gait, 1 PF Focus step mgt using fWW. Precautions Lumbar Precautions Log Roll,No Twisting,Limit Bending,Lifting Restriction of 10 lbs,Gait Belt above Incisional Area Recommendations To Nursing Amount of Assist Needed 1 Person Assist Discharge Recommendations PT Discharge Recommendations Home with 26/03 Assist Available,Home Health Transportation Needs at Discharge Private Vehicle
[2021-03-23] MEDS: ACETAMINOPHEN 325 MG TABLET 650 MG PO ×2 (14:20→20:18)
[2021-03-23] MEDS: METOPROLOL IR 25 MG TABLET PO (17:05)
--- NOTE | 2021-03-23 17:48 | PT.IPTN ---
Current Diagnoses Other spondylosis with radiculopathy, lumbosacral region (03/21/21) Spinal stenosis, lumbar region without neurogenic claudication (03/21/21) Other specified postprocedural states (03/21/21) Surgery Performed Operation Date: 11/22/20 07:45 <No data on this case meets the specified criteria> Operation Date: 03/21/21 07:45 Actual Procedures p L3-4, L4-5 TLIF with posterior instrumentation - Debbie Pichardo MD Physical Therapy Treatment Note M2 PT-IP Current Condition Start: 03/22/21 11:50 Freq: NEEDED Status: Active Protocol: Document 03/22/21 09:05 AB (Rec: 03/22/21 12:00 AB [id number]) Physical Therapy Current Condition Current Condition Evaluation Date 03/22/21 Treatment Diagnosis L3-4, 4-5 fusion/lami; difficulty in walking Onset Date 03/21/21 Precautions Lumbar Precautions Log Roll,No Twisting,Limit Bending,Lifting Restriction of 10 lbs,Gait Belt above Incisional Area M3 PT-IP Subjective Start: 03/22/21 11:50 Freq: NEEDED Status: Active Protocol: Document 03/23/21 17:15 SP (Rec: 03/23/21 18:29 SP [id number]) Subjective Physical Therapy Visit Type Type Treatment Note Visit Start Time 17:15 Visit Stop Time 17:48 Total Visit Minutes 33 Notes provided assist during mobility needed, noted his hands little shaky during donning gait belt but stated just little nervous and wants to be doing everything correctly. Number of UNION LABORER Visits 2 Physical Therapy Visit Comments Patient Comments agreeable to do PT Patient Goals go home with assist from her Therapy Pain Assessment Pain When Pain Assessed During Mobility Pain Present Pain Present Pain Reported Location lower back Scale Used pain scale not stated, low Description With Movement Pain Management Techniques Distraction,Modification of Treatment,Re-positioning, Timing of Activity with Medications M4 PT-IP Mobility and Gait Start: 03/22/21 11:50 Freq: NEEDED Status: Active Protocol: Document 03/23/21 17:15 SP (Rec: 03/23/21 18:29 SP [id number]) PT-Bed Mobility Assessment Rolling Type of Rolling Log Rolling,Bilateral Level of Assist Minimal Assistance,1 Person Assistance Supine to Sit Supine to Sit Moderate Assistance,Maximum Assistance,1 Person Assistance Sit to Supine Sit to Supine Moderate Assistance,1 Person Assistance Scooting Scooting to Edge of Bed Contact Guard Assistance PT-Transfer Assessment Sit to and From Stand Sit to and from Stand Minimal Assistance,Moderate Assistance,1 Person Assistance ,Use of Upper Extremities Equipment Transfer Assistive Device Gait Belt,Front Wheeled Walker Orthotic/Prosthetic Devices or Brace: No Transfers Transfer Destination Bed,Chair Transfer Technique Stand Step Pivot Transfer Ability Level of Assist Contact Guard Assistance, Minimal Assistance,1 Person Assistance,Use of Upper Extremities Comments Mobility Comments Pt up in chair when arrived. Completed scoot to EOchair. Sit>stand Min- Mod A x1 with verbal can contact cuing for proper hand placement. Pt ambulated to PF step, ascend/ descend 1 PF step Min A x1 ( ) with guidence and max cuing for proper sequencing and placement of FWW. Ambulated further distance into hallway and back to room using FWW CGA with intermittent cuing larger steps, upright posture, stay closer and small steps while pivoting w/FWW. Stand>sit w/ cues reach back slow descent to bed Min A, sit> L SL Mod A for LE support into bed with cuing for trunk staying on side for no twisting then roll . Pt able to reposition self center in bed. Sup>L sidelying Daiana of 's hand to pull from and contact cues LE to EOB then Mod- Max A for righting trunk to sitting,cues provided to for RUE under pt's L shld blade and offering his LUE for her RUE to pull from while she pushes with her LUE on bed to complete to sitting. Pt was able to scoot to EOB CGA, sit> stand with cues for proper hand placement, SPT using FWW CGA, Max cues for proper positioning back to chair then reaching back, slow descent to chair Min A. UNION LABORER reclined pt with chair alarm donned and call light and all needs in reach before left, in room. Pt and understood if pt needs assistance to press call light . Gait Assessment Gait Gait Assistance Required: Contact Guard Assist,1 Person Assist Distance (Feet) 120 Able to Maintain Weight Bearing Status Yes During Gait Assistive Devices Assistive Device Gait Belt,Front Wheeled Walker Orthotic/Prosthetic Devices or Brace: No Gait Deviations General Gait Pattern Antalgic,Decreased Stride Length,Decreased Feet Clearance,Flexed Trunk,Step-to Gait,Wide Based Gait Factors Limiting Gait Function Factors Limiting Gait Function Decreased Activity Tolerance, Decreased Strength,Difficulty Following Directions,Limited Range of Motion,Pain,Poor Balance,Poor Safety Awareness Comments Gait Comments see mobility comments Stair Climbing Assessment Evaluation Level of Assist On Stairs Minimal Assistance,1 Person Assistance Devices Stair Climbing Assistive Devices Front Wheel Walker Technique/Endurance Stair Climbing Direction Ascend and Descend Stair Climbing Technique Step to Step Number of Steps Climbed 1 Stair Climbing Set # Repetitions (reps) 1 Comments Stair Climbing Comments 1 PF step, see mobility comments for details. stated she doesn't need to perform the 14 stairs to get to the TV room, will bring TV down to main level for now. PT-Balance Assessment Sitting Balance and Reactions Static Sitting Balance Ability Good Dynamic Sitting Balance Ability Fair Standing Balance and Reactions Static Standing Balance Ability Good Dynamic Standing Balance Ability Fair Device Used FWW M5 PT-IP Objective Assessments Start: 03/22/21 11:50 Freq: NEEDED Status: Active Protocol: Document 03/22/21 09:05 AB (Rec: 03/22/21 12:00 AB [id number]) Orientation Orientation/Cognition Level of Alertness Lethargic Orientation Name Safety Awareness Decreased Safety Awareness Memory Description Short Term Impaired Gross Range of Motion Lower Extremity ROM Assessment Within Functional Limits Strength Lower Extremity Strength Hip 3+/5 Knee 4-/5 Muscle Tone Muscle Tone WNL Yes M6 PT-IP Treatment Start: 03/22/21 11:50 Freq: NEEDED Status: Active Protocol: Document 03/23/21 17:15 SP (Rec: 03/23/21 18:29 SP [id number]) Physical Therapy Treatment Education Education Provided Precautions,Safety M7 PT-IP Assessment and Plan Start: 03/22/21 11:50 Freq: NEEDED Status: Active Protocol: Document 03/23/21 17:15 SP (Rec: 03/23/21 18:29 SP [id number]) PT Summary Assessment and Plan Potential Rehabilitation Potential Good Status of Condition at Evaluation Evolving Summary Impairments Pain,ROM,Strength,Balance, Coordination,Sensation,Tone, Cognition,Bed Mobility, Transfers,Gait,Activity Tolerance Progress Towards Goals Progressing Toward Goals,Slow Progress due to Activity Tolerance Assessment Summary Pt requires max cues for proper hand placement, Min- Mod A during sit<>stand, CG during gait, Min A during PF step mgt, Mod- Max A during bed mobility for trunk> LE assist. Pt is progressing in strength and activity tolerance this tx. She would benefit from continued acute therapy. Will continue to assess progress. Goals Bed Mobility Goal Standby Assistance Transfer Goal Independent,Front Wheeled Walker Gait Goal Standby Assistance,Front Wheel Walker Gait Distance 150 Other Goals up/down 1 step using FWW SBA up/down 14 steps R rail ascending SBA (not need to do at this time) Days to Meet Goals 10 Frequency of Treatment Frequency Of Treatment Twice a Day Treatment Plan Physical Therapy Treatment Plan Bed Mobility Training,Transfer Training,Gait Training, Therapeutic Exercise,Balance Retraining,Post Op Education, Discharge Planning,Hot or Cold Pack,Neuromuscular Re-ed, Coordination Retraining,Manual Therapy Other Recommendations and Next Treatment bed mob, transfers, gait w/ Focus FWW, PF step if prefers to complete again for strength but has completed. Precautions Lumbar Precautions Log Roll,No Twisting,Limit Bending,Lifting Restriction of 10 lbs,Gait Belt above Incisional Area Recommendations To Nursing Amount of Assist Needed 1 Person Assist Discharge Recommendations PT Discharge Recommendations Home with / Assist Available,Home Health Transportation Needs at Discharge Private Vehicle
--- NOTE | 2021-03-23 18:09 | PC.NURSE ---
PATIENT REMAINS VERY SEDATE,DIFFICULT TIME KEEPING EYES OPEN WHILE TALKING WITH ME,SLOW TO RESPOND.VERY SLOW AND NEEDING ASSISTANCE TO GET TO BATHROOM WITH WALKER. PAIN MANAGED AT THIS TIME WITH TYLENOL
[2021-03-23] MEDS: SENNOSIDES 8.6 MG TABLET 17.2 MG PO (20:18)
[2021-03-23] MEDS: ATORVASTATIN 20 MG TABLET PO (20:18)
[2021-03-23] MEDS: SODIUM CHLORIDE 0.9% FLUSH 10 ML IV (20:31)
[2021-03-24 00:15] VITALS: BP 125/51; PULSE 77; RESP 20; TEMP 37.1; O2SAT 93
[2021-03-24] MEDS: ACETAMINOPHEN 325 MG TABLET 650 MG PO (05:09)
[2021-03-24 05:20] VITALS: BP 130/71; PULSE 77; RESP 16; TEMP 36.3; O2SAT 97
[2021-03-24] MEDS: PANTOPRAZOLE DR 20 MG TABLET PO (06:03)
[2021-03-24 08:00] VITALS: BP 139/61; PULSE 79; RESP 18; TEMP 36.4; O2SAT 98
[2021-03-24] MEDS: INSULIN LISPRO 100 UNIT/ML 3ML VIAL SUBCUT ×3 (08:44→10:57)
[2021-03-24] MEDS: DOCUSATE 100 MG CAPSULE PO (08:45)
[2021-03-24] MEDS: AMLODIPINE 5 MG TABLET PO (08:45)
[2021-03-24] MEDS: FERROUS SULFATE 325 MG TABLET PO (08:46)
[2021-03-24] MEDS: SODIUM CHLORIDE 0.9% FLUSH 10 ML IV (08:46)
[2021-03-24] MEDS: LOSARTAN 50 MG TABLET PO (08:46)
[2021-03-24] MEDS: ESCITALOPRAM 10 MG TABLET PO (08:46)
--- NOTE | 2021-03-24 09:27 | PM.DS.1 ---
History of Present Illness History of Present Illness Chief complaint: LUMBAR TLIF *OPB* Narrative: Patient's pain is [id number]. Denies fever chills. No nausea vomiting. Discharge Providers Provider Date of admission: 03/21/21 05:42 Discharge Date: 03/24/21 Primary care physician: Julius Poole MD Consults: 03/15/21 13:46 Consult to Anesthesiology Routine Comment: Consulting Provider: Anesthesiologist Reason for consultation: Surgeon requested re: No reason provided 03/21/21 14:14 Consult to Occupational Therapy Evaluate & Treat Comment: Physician Instructions: Evaluate and treat Consult to Physical Therapy Evaluate & Treat Comment: Physician Instructions: Evaluate and Treat 03/23/21 14:26 Consult to Home Health Routine Comment: Lumbar TLIF Reason For Exam: Set up RN/PT/OT for d/c home Discharge provider: Janes Amin PA-C Summary Hospital Course Discharge Diagnosis: 1. L3-4, L4-5 hx of laminectomies and radiculopathy 2. L3-4, L4-5 spinal stenosis with radiculopathy Hospital Course: 1. L3-4, L4-5 Postero-lateral and posterior interbody fusion 2. L3-4, L4-5 interbody cage placement. 3. L3-4, L4-5 decompressive laminectomy with bilateral facetecomies 4. L3-4, L4-5 Posterior segmental instrumentation 5. Garretson of bone marrow from iliac crest 6. Utilization of microsurgical technique and operating microscope 7. Robotic navigation assisted implant placement Same procedure as scheduled: Yes Indications: Patient has been having chronic back pain and worsening lumbar radiculopathy. Patient had previous laminectomies with temporary relief of her symptoms with worsening of her back pain and leg pain over the last year. Patient failed multiple conservative management with worsening pain weakness and numbness in her lower extremity. Patient has been having difficulty performing activity of daily living. After discussing risks benefits of treatment options, patient elected proceed with surgery. Surgeon: Debbie Pichardo Microcomputer Support Specialist: [place] Click Yes if Unassisted: No Anesthesia Type: General Patient admitted to the hospital for the above-mentioned procedure. Patient consented to the same. Patient taken operative room on March 21, 2021. Patient back in her room recovering well as in stable condition. Discharge home today in stable condition. Exam Vital Signs (past 8 hours): - 03/24/21 05:20 03/24/21 08:00 Temperature 97.3 F L 97.5 F L Pulse Rate 77 79 Respiratory Rate 16 18 Blood Pressure 130/71 139/61 Pulse Oximetry 97 98 Oxygen Delivery Method Nasal Cannula Oxygen Flow Rate 0 Narrative Exam Narrative: Pleasant 70-year-old female resting comfortably in no apparent distress. Dressing Clean, dry, intact.. Neurovascular status is intact bilateral lower extremities. Objective Labs Result Diagrams: 03/22/21 05:40 PFSH Medical History Anxiety Arthritis CAD (coronary artery disease) Diabetes mellitus Easy bruisability GERD (gastroesophageal reflux disease) Heel pain History of left heart catheterization HTN (hypertension) Hyperlipidemia Neuropathy Spinal stenosis Surgical History H/O section History of ankle surgery Hx of appendectomy Hx of bilateral cataract extraction Hx of eye surgery Hx of heart artery stent (03/08/12) Hx of laminectomy (03/05/17) Hx of tonsillectomy Social History household members: spouse Smoking Status: Never smoker alcohol intake: current Discharge Assessment & Plan Assessment and Plan Assessment: Progressing as expected. Plan of Treatment: Discharge home today in stable condition. Discharge Plan Discharge Plan Patient Disposition: Home Health Service Provider Discharge Comment: Home health PT recommended for safety training Discharge orders & Medications Prescriptions: New acetaminophen 325 mg Tablet 650 mg PO Q6HR PRN (Reason: Pain, Mild (1-3)) Qty: 60 RF: 0 oxycodone 5 mg capsule 5 mg PO Q3H PRN (Reason: pain) Qty: 30 RF: 0 Continued omeprazole 20 MG capsule,delayed release(DR/EC) 20 mg PO Q DAY Qty: 0 RF: 0 escitalopram oxalate [Lexapro] 10 MG tablet 10 mg PO QDAY Qty: 0 RF: 0 rosuvastatin [Crestor] 10 MG tablet 10 mg PO QDAY Qty: 0 RF: 0 nitroglycerin [Nitrostat] 0.4 MG tablet, sublingual 0.4 mg Sublingual Q5MIN X3 PRN (Reason: Chest Pain) Qty: 0 RF: 0 irbesartan 150 mg Tablet 150 mg PO BID RF: 0 metoprolol tartrate 25 mg Tablet 25 mg PO QPM RF: 0 Basaglar KwikPen U-100 Insulin 100 unit/mL (3 mL) Insulin Pen 18 unit SUBCUT QAM RF: 0 Apidra SoloStar U-100 Insulin 100 unit/mL Insulin Pen 4 - 6 unit SUBCUT TID RF: 0 aspirin 81 mg Tablet,Delayed Release (Dr/Ec) 162 mg PO BEDTIME RF: 0 ferrous sulfate 325 mg (65 mg iron) Tablet 325 mg PO DAILY RF: 0 amlodipine 5 mg tablet 5 mg PO QAM RF: 0 Follow up/Referrals: Debbie Pichardo MD [Physician] - (2 weeks) Julius Poole MD [Primary Care Provider] - Diet/Activity/Treatments Diet: Diet as Tolerated Activity: Limit bending, twisting, lifting Cold/Heat Therapy: Ice as needed Skin/Wound/Dressing Care Report to your healthcare provider any signs of infection, such as:: chills, fever, increased pain, unusual drainage and unusual redness Dressing: Keep clean and dry Visit Report/Discharge Packet Instructions: How to Prevent Falls, DI for Prescription Opioid Use, DI for Transforaminal Lumbar Interbody Fusion, Oxycodone/Acetaminophen (By mouth) Stand Alone Forms: Surgery Discharge Discharge Data Primary Care Provider: Julius Poole Quality VTE Deep Vein Thrombosis/Pulmonary Embolism Present on Admission: No
[2021-03-24] MEDS: INSULIN GLARGINE 100 UNIT/ML 3ML PEN 18 UNIT SUBCUT (09:58)
--- NOTE | 2021-03-24 10:47 | PT-IP ANOTE ---
Pt declined PT treatment when arrived at 1044. Nurse in room going over DC packet. Pt and stand doing well, feel confident with what have work with therapy on, did a lot of activity with nursing already this am and don't feel need to do anything with PT as well, ready to go home. Pt was not seen for PT today.
--- NOTE | 2021-03-24 10:49 | PC.NURSE ---
Pt has received orders to discharge home to further her rehabilitation. Pt and her have been educated on her lumbar precautions and in regard to her home medication administration. Wound care, bathing and follow up appointment have also been discussed. Pt has been escorted out of the hospital via wheelchair by FABIENNE Prado and in the company of her at approx. [phone]
--- NOTE | 2021-03-24 11:30 | OT.IP.TRT ---
Current Diagnoses Other spondylosis with radiculopathy, lumbosacral region (03/21/21) Spinal stenosis, lumbar region without neurogenic claudication (03/21/21) Other specified postprocedural states (03/21/21) Surgery Performed Operation Date: 11/22/20 07:45 <No data on this case meets the specified criteria> Operation Date: 03/21/21 07:45 Actual Procedures p L3-4, L4-5 TLIF with posterior instrumentation - Debbie Pichardo MD Occupational Therapy Treatment Note M2 OT-IP Current Condition Start: 03/22/21 12:42 Freq: Status: Discharge Protocol: Document 03/22/21 11:17 [facility] (Rec: 03/22/21 13:01 [facility] [id number]) Occupational Therapy Current Condition Current Condition Evaluation Date 03/22/21 Treatment Diagnosis s/p L3-4, L4-5 fusion,lami, decreased mobility Diagnosis Onset Date 03/21/21 Post Operative Precautions Lumbar Precautions Log Roll,No Twisting,Limit Bending,Lifting Restriction of 10 lbs,Gait Belt above Incisional Area M3 OT- IP Subjective and Pain Start: 03/22/21 12:42 Freq: Status: Discharge Protocol: Document 03/24/21 10:12 [facility] (Rec: 03/24/21 12:08 [facility] [id number]) OT- Subjective Occupational Therapy Visit Type Type Treatment Note Visit Start Time 10:12 Visit Stop Time 11:30 Total Visit Minutes 48 Occupational Therapy Visit Comments Patient Comments Pt's and pt open to going over bed mobility again with OT. Patient/Caregiver Goals To go home. OT Pain Assessment Pain When Pain Assessed At Rest Pain Present Pain Present Pain Reported Location lower back Intensity 3 Scale Used Numeric (0 - 10) M6 OT- IP Functional Cognition Start: 03/22/21 12:42 Freq: Status: Discharge Protocol: Document 03/24/21 10:12 [facility] (Rec: 03/24/21 12:08 [facility] [id number]) Cognitive Factors Limiting Selfcare Function Cognitive Comments Cognitive Assessment Comments Pt much more alert today and able to follow directions better. M7 OT- IP Mobility and Balance Start: 03/22/21 12:42 Freq: Status: Discharge Protocol: Document 03/24/21 10:12 [facility] (Rec: 03/24/21 12:08 [facility] [id number]) OT- Bed Mobility Assessment Supine to Sit Supine to Sit Assist Minimal Assistance Sit to Supine Sit to Supine Assist Moderate Assistance OT-Transfer Assessment Sit to and From Stand Sit to and from Stand Minimal Assistance,Moderate Assistance,1 Person Assistance Transfers Transfer Ability Minimal Assistance,1 Person Assistance Technique Transfer Destination Bed,Chair Transfer Technique Stand Step Pivot Devices Transfer Assistive Devices Gait Belt,Front Wheeled Walker Comments Mobility Comments Pt's able to lennie gait belt on with good demonstration. Able to go over bed mobility with pt and and also able to physically show pt's on him how if feels. Also had pt's practice on the therapist over and over. Pt's also able to write down for himself on directions for his hand placement to be able to asisst his properly. After OT session, pt's feeling more confident and able to safely assist his for bed mobility needs now. OT- Balance Assessment Sitting Balance and Reactions Static Sitting Balance Ability Good Dynamic Sitting Balance Ability Fair Standing Balance and Reactions Static Standing Balance Ability Fair M8 OT- IP Objective Assessments Start: 03/22/21 12:42 Freq: Status: Discharge Protocol: Document 03/22/21 11:17 [facility] (Rec: 03/22/21 13:01 [facility] [id number]) OT Gross Range of Motion Upper Extremity Range of Motion Assessment Within Functional Limits OT Strength Upper Extremity Strength Assessment Within Functional Limits OT- Coordination Assessment Upper Extremity Finger to Nose Test Within Functional Limits M9 OT- IP Assessment and Plan Start: 03/22/21 12:42 Freq: Status: Discharge Protocol: Document 03/24/21 10:12 [facility] (Rec: 03/24/21 12:08 [facility] [id number]) OT Summary Assessment and Plan Potential Rehabilitation Potential Good Analytic Complexity at Evaluation Low Summary Progress Towards Goals Progressing Toward Goals Assessment Summary Pt's able to go over more training for bed mobility needs and now safe and confident to be able to assist his now. Pt to go home with and home health. Pt's states to look at getting a BSC on the way home . Discharge Recommendations OT Discharge Recommendations Home with 24/7 Assist Available,Home Health Home Equipment Needs BSC Transportation Needs at Discharge Private Vehicle
--- NOTE | 2021-03-24 16:23 | CM.DPNOTE ---
DC Note DC home today w/family and [facility]; Faxed DC Summary to [facility]W
== END 2021-03-24 10:55 | disposition home or self-care (01) | DRG 455 ==
LOC: OR 05:51 → AC 05:52
PROVIDERS: Admitting Provider Orthopaedic Surgery Orthopaedic Surgery of the Spine; PCP Family Medicine; Referring Provider Orthopaedic Surgery Orthopaedic Surgery of the Spine; Visit Provider Orthopaedic Surgery Orthopaedic Surgery of the Spine
PROC: 0SG10AJ Fusion of 2 or more Lumbar Vertebral Joints with Interbody Fusion Device, Posterior Approach, Anterior Column, Open Approach (ICD-10-PCS; principal; 2021-03-21 07:45)
DX: M48.061 Spinal stenosis, lumbar region without neurogenic claudication (principal); M47.27 Other spondylosis with radiculopathy, lumbosacral region; E11.9 Type 2 diabetes mellitus without complications; I25.10 Atherosclerotic heart disease of native coronary artery without angina pectoris; K21.9 Gastro-esophageal reflux disease without esophagitis; I10 Essential (primary) hypertension; E78.5 Hyperlipidemia, unspecified; E66.9 Obesity, unspecified; Z68.31 Body mass index [BMI] 31.0-31.9, adult; Z79.4 Long term (current) use of insulin; Z20.822 Contact with and (suspected) exposure to COVID-19; M48.062 Spinal stenosis, lumbar region with neurogenic claudication; M54.5 Low back pain; M47.816 Spondylosis without myelopathy or radiculopathy, lumbar region; M47.817 Spondylosis without myelopathy or radiculopathy, lumbosacral region; K44.9 Diaphragmatic hernia without obstruction or gangrene; M43.27 Fusion of spine, lumbosacral region; M96.1 Postlaminectomy syndrome, not elsewhere classified
CPT/HCPCS: 36415; 72100; 72131; 76000; 82962; 85014; 85018; 87635; 97116; 97162; 97165; 97530; 97535; C1776; C9803; C9290; J0330; J0690; J1170; J1815; J2250; J2405; J2704; J3010; J3410

== ENCOUNTER 2021-03-31 08:46 | Emergency (ER) | payer MEDICARE, OTHER, SELFPAY ==
[2021-03-21 15:50] VITALS: BMI 31.9
[2021-03-31] VITALS (28 sets, daily range): BP systolic 163–214; BP diastolic 72–117; PULSE 81–102; RESP 15–24; TEMP 36.2–36.9; O2SAT 94–100; BMI 31.6
--- NOTE | 2021-03-31 09:20 | ED.WEAKNESS ---
HPI - Weakness General Chief complaint: Weakness Stated complaint: Extreme weakness since yesterday Time Seen by Provider: 03/31/21 08:54 Source: patient Mode of arrival: Wheelchair Limitations: no limitations History of Present Illness HPI Narrative: 70 Female nonsmoker, diabetic with history of hypertension presents with her in the chief complaint of profound weakness and loss of control of bowel and bladder over the course of the last 24 hours. She denies any fever or chills and has had no traumatic injury. She recently had spinal surgery for lumbar stenosis and had been doing rather well. She was able to ambulate with a walker and since yesterday she has been unable to get around, took 3 people to get her out of the car. She denies runny nose or sore throat. She has no chest pain or shortness of breath. She has no fever or chills. Related Data Home Medications Medication Instructions Recorded Confirmed escitalopram oxalate 10 mg tablet 10 mg PO QDAY #0 12/26/12 03/21/21 (Lexapro) omeprazole 20 mg capsule,delayed 20 mg PO Q DAY #0 12/26/12 03/21/21 release rosuvastatin 10 mg tablet (Crestor) 10 mg PO QDAY #0 02/18/13 03/21/21 nitroglycerin 0.4 mg sublingual 0.4 mg SUBLINGUAL Q5MIN X3 PRN #0 03/01/17 03/15/21 tablet (Nitrostat) amlodipine 5 mg tablet 5 mg PO QAM 01/03/21 03/21/21 aspirin 81 mg tablet,delayed 162 mg PO BEDTIME 03/15/21 03/15/21 release ferrous sulfate 325 mg (65 mg 325 mg PO DAILY 03/15/21 03/21/21 iron) tablet insulin glargine 100 unit/mL (3 18 unit SUBCUT QAM 03/15/21 03/21/21 mL) subcutaneous pen (Basaglar KwikPen U-100 Insulin) insulin glulisine U-100 100 4 - 6 unit SUBCUT TID 03/15/21 03/21/21 unit/mL subcutaneous pen (Apidra SoloStar U-100 Insulin) irbesartan 150 mg tablet 150 mg PO BID 03/15/21 03/21/21 metoprolol tartrate 25 mg tablet 25 mg PO QPM 03/15/21 03/21/21 Previous Rx's Medication Instructions Recorded acetaminophen 325 mg tablet 650 mg PO Q6HR PRN #60 tab 03/23/21 oxycodone 5 mg capsule 5 mg PO Q3H PRN #30 cap 03/23/21 oxycodone 5 mg tablet 5 mg PO Q4H PRN #30 tab 03/24/21 Allergies Allergy/AdvReac Type Severity Reaction Status Date / Time adhesive [ADHESIVE] AdvReac Severe Tears skin Verified 03/31/21 08:50 with prolonged wear Corticosteroids AdvReac Severe ELEVATED Verified 03/31/21 08:50 (Glucocorticoids) GLUCOSE [CORTICOSTEROIDS (GLUCOCORTICOIDS)] Sulfa (Sulfonamide AdvReac Mild Hyperglycemia, Verified 03/31/21 08:50 Antibiotics) flushed, [SULFA (SULFONAMIDE funny ANTIBIOTICS)] feeling Review of Systems Review of Systems Narrative: GENERAL: See HPI HEENT: Denies sinus pain, ear pain, sore throat, difficulty swallowing, dizziness. RESPIRATORY: Denies dyspnea, cough, wheezing, hemoptysis, sputum. CARDIOVASCULAR: Denies chest pain, palpitations, orthopnea, edema, GASTROINTESTINAL: See HPI : See HPI MUSCULOSKELETAL: denies weakness, joint pain, or bony pain SKIN: Denies rash, skin lesions, or other NEUROLOGIC: Denies weakness, headache, numbness, change in speech, confusion, seizures, incoordination. PSYCHIATRIC: No concerning psychosocial issues. 12 point review of systems is negative except for those stated above Patient History Medical History Anxiety Arthritis CAD (coronary artery disease) Diabetes mellitus Easy bruisability GERD (gastroesophageal reflux disease) Heel pain History of left heart catheterization HTN (hypertension) Hyperlipidemia Neuropathy Spinal stenosis Surgical History H/O section History of ankle surgery Hx of appendectomy Hx of bilateral cataract extraction Hx of eye surgery Hx of heart artery stent (03/08/12) Hx of laminectomy (03/05/17) Hx of tonsillectomy Social History household members: spouse Smoking Status: Never smoker alcohol intake: current Smoking Status: Never smoker alcohol intake frequency: holidays/special occasions only Substance Use Type: does not use Exam Narrative Exam Narrative: GENERAL: [70] year old patient appears stated age. Well-developed patient, in mild distress. HEAD: Atraumatic. Normocephalic. EYES: Pupils equal round and reactive. Extraocular motions intact. No scleral icterus. No injection or drainage. ENT: Nose without bleeding, purulent drainage. Throat without erythema, tonsillar hypertrophy or exudate. Airway patent. NECK: Trachea midline. Non tender CARDIOVASCULAR: Regular rate and rhythm without murmurs, gallops, or rubs. RESPIRATORY: Clear to auscultation. Breath sounds equal bilaterally. No wheezes, rales, or rhonchi. GASTROINTESTINAL: Abdomen soft, non-tender, nondistended. EXTREM / BACK: No saddle anesthesia, bilateral lower extremity strength 4/5 with minimal numbness and tingling. Incisions are clean, dry and intact, no dehiscence, erythema, fluctuance or drainage. NEURO: AOx3. SKIN: No rash or erythema of visible areas Initial Vital Signs Initial Vital Signs: Vital Signs Temperature 97.2 F L 03/31/21 08:50 Pulse Rate 87 03/31/21 08:50 Respiratory Rate 16 03/31/21 08:50 Blood Pressure 199/81 H 03/31/21 08:50 Pulse Oximetry 98 03/31/21 08:50 Course Orders Ordered: ED Orders 03/31/21 09:20 EKG-12 Lead Stat 03/31/21 09:45 COVID19 - ADMIT ([facility] swab/PCR) Stat 03/31/21 10:09 Blood Culture Stat 03/31/21 10:12 CT lumbar spine wo con Stat 03/31/21 11:22 MR lumbar spine wo con Stat Sodium Chloride (Normal Saline 0.9%) 1,000 mls @ 150 mls/hr IV CONT EDE Last Infusion: 03/31/21 16:15 Dose: 0 mls/hr Documented by: Admin: 03/31/21 09:30 Dose: 150 mls/hr Documented by: TERESO Discontinued Medications Dexamethasone (Dexamethasone 10 Mg/Ml Vial) 6 mg IV NOW ONE Stop: 03/31/21 10:13 Last Admin: 03/31/21 10:20 Dose: 6 mg Documented by: TERESO Hydromorphone HCl (Hydromorphone 0.5 Mg Inj) 0.5 mg IV NOW ONE Stop: 03/31/21 12:06 Last Admin: 03/31/21 12:18 Dose: 0.5 mg Documented by: KBRYERCarroll Consultations Consultation #1: call to regional [facility] manager ortho (Lex) to discuss imaging modalities. She has reached out to the surgeon that performed the operation (Dr. Pichardo) who recommends steroids and CT with possible MRI Vital Signs Vital signs: Vital Signs - 8 hr 03/31/21 10:34 03/31/21 11:42 03/31/21 12:00 Pulse Rate 84 87 96 H Respiratory Rate 18 21 22 Blood Pressure 191/78 H 193/86 H Pulse Oximetry 98 97 98 03/31/21 12:01 03/31/21 12:26 03/31/21 12:30 Pulse Rate 95 H 90 84 Respiratory Rate 15 18 Blood Pressure 210/86 H 206/80 H 182/77 H Pulse Oximetry 98 100 100 03/31/21 13:00 03/31/21 13:30 03/31/21 14:14 Pulse Rate 83 82 91 H Respiratory Rate 20 19 Blood Pressure 163/117 H 185/72 H Pulse Oximetry 100 100 97 03/31/21 14:30 03/31/21 14:31 03/31/21 15:00 Pulse Rate 93 H 92 H 84 Respiratory Rate Blood Pressure 170/72 H 184/75 H Pulse Oximetry 98 98 94 03/31/21 15:30 03/31/21 16:00 03/31/21 16:29 Pulse Rate 90 93 H 102 H Respiratory Rate Blood Pressure 169/77 H 170/86 H Pulse Oximetry 97 98 97 03/31/21 16:31 03/31/21 16:41 03/31/21 17:00 Pulse Rate 98 H 87 Respiratory Rate Blood Pressure 188/79 H 180/78 H Pulse Oximetry 97 95 MDM - Weakness Lab Data Result diagrams: 03/31/21 09:10 03/31/21 09:10 Labs: Lab Results 03/31/21 03/31/21 03/31/21 Range/Units 09:10 09:10 09:10 WBC 12.6 H (4.5-11.0) X10^3/uL RBC 3.89 L (4.0-5.2) X10^6/uL Hgb 10.1 L (12.0-16.0) g/dL Hct 32.0 L (36-46) % MCV 82.2 (80-100) fL MCH 26.0 (26-34) PG MCHC 31.7 (30-36) % RDW 16.6 H (11.6-14.8) % Plt Count 439 H (150-400) X10^3/uL Neut % (Auto) 86.5 H (50-75) % Lymph % (Auto) 6.9 L (25-40) % [place] % (Auto) 6.2 (3-14) % Eos % (Auto) 0.1 L (2-4) % Baso % (Auto) 0.3 (0-2) % Neut # (Auto) 77317 H (2665-8463) /uL Lymph # (Auto) 900 L (4274-7674) /uL [place] # (Auto) 800 (0-900) /uL Eos # (Auto) 0 (0-450) /uL Baso # (Auto) 0 (0-100) /uL Sodium 133 L (137-145) mmol/L Potassium 4.3 (3.4-5.1) mmol/L Chloride 99 (98-107) mmol/L Carbon Dioxide 27 (22-32) mmol/L BUN 18 H (7-17) mg/dL Creatinine 0.60 (0.52-1.04) mg/dL Estimated GFR > 60.0 (>60) mL/min BUN/Creatinine Ratio 30.0 H (6-22) Glucose 284 H (80-110) mg/dL Lactate 1.7 (0.7-2.1) mmol/L Calcium 9.0 (8.4-10.2) mg/dL Total Bilirubin 0.5 (0.2-1.3) mg/dL AST 92 H (14-36) IU/L ALT 80 H (<35) IU/L Alkaline Phosphatase 164 H (38-126) U/L Total Creatine Kinase 105 (30-135) U/L CK-MB (CK-2) 1.60 (<2.37) ng/mL CK-MB (CK-2) Rel Index 1.5 (1.5-5.0) % Troponin I < 0.012 (0.01-0.034) ng/mL Total Protein 7.5 (6.3-8.2) g/dL Albumin 3.8 (3.5-5.0) g/dL Globulin 3.7 (1.7-4.1) g/dL Albumin/Globulin Ratio 1.0 (1.0-2.8) Procalcitonin 0.13 (<0.5) ng/mL SARS-CoV-2 (PCR) (Negative) 03/31/21 Range/Units 09:45 WBC (4.5-11.0) X10^3/uL RBC (4.0-5.2) X10^6/uL Hgb (12.0-16.0) g/dL Hct (36-46) % MCV (80-100) fL MCH (26-34) PG MCHC (30-36) % RDW (11.6-14.8) % Plt Count (150-400) X10^3/uL Neut % (Auto) (50-75) % Lymph % (Auto) (25-40) % [place] % (Auto) (3-14) % Eos % (Auto) (2-4) % Baso % (Auto) (0-2) % Neut # (Auto) (7920-7140) /uL Lymph # (Auto) (1657-1762) /uL [place] # (Auto) (0-900) /uL Eos # (Auto) (0-450) /uL Baso # (Auto) (0-100) /uL Sodium (137-145) mmol/L Potassium (3.4-5.1) mmol/L Chloride (98-107) mmol/L Carbon Dioxide (22-32) mmol/L BUN (7-17) mg/dL Creatinine (0.52-1.04) mg/dL Estimated GFR (>60) mL/min BUN/Creatinine Ratio (6-22) Glucose (80-110) mg/dL Lactate (0.7-2.1) mmol/L Calcium (8.4-10.2) mg/dL Total Bilirubin (0.2-1.3) mg/dL AST (14-36) IU/L ALT (<35) IU/L Alkaline Phosphatase (38-126) U/L Total Creatine Kinase (30-135) U/L CK-MB (CK-2) (<2.37) ng/mL CK-MB (CK-2) Rel Index (1.5-5.0) % Troponin I (0.01-0.034) ng/mL Total Protein (6.3-8.2) g/dL Albumin (3.5-5.0) g/dL Globulin (1.7-4.1) g/dL Albumin/Globulin Ratio (1.0-2.8) Procalcitonin (<0.5) ng/mL SARS-CoV-2 (PCR) Negative (Negative) Point of Care Testing Glucose POC [address] Lumbar: Radiologist Impression: Chart Viewer Diagnostics DATE TYPE STATUS REF RANGE/AUTHOR Hx Today 11:22 Echo,Renay Today 10:12 Renay Dodge 03/21/21 12:11 Matthew Willingham 03/18/21 00:00 Kirill Hull 01/03/21 08:32 10/01/20 12:47 10/01/20 12:47 10/01/20 12:47 09/22/20 13:37 Ted Mcclain 08/22/18 00:00 Ted Mcclain 03/05/17 11:57 70, 1950 [facility], [facility] ED R05 167.64cm 88.904kg BMI: 31.6kg/m? Weakness Search Chart No Data to Display Total Unconfirmed Tears skin with prolonged wear ELEVATED GLUCOSE Hyperglycemia, flushed, funny feeling No Data to Display Today 17:00 Erendira Arthur 70 F [address] [id number] Scan ReportSigned Patient: Erendira Arthur LMR#: [id number]: 1950Acct:[id number]/Sex: 70 / FDate of Service: 03/31/21Loc: EDAccession Number: [id number] Procedure: CT lumbar spine wo con Ordering Provider: Brenden Javed D.O. PROCEDURE: CT LUMBAR SPINE WO CON INDICATIONS: recent lumbar surgery, change in symptoms, now weak TECHNIQUE: Noncontrast 3 mm thick sections acquired from the T12 level to the sacrum. Sagittal and coronal reformats were constructed. For radiation dose reduction, the following was used: automated exposure control. COMPARISON: [facility], CR, XR LUMBAR SPINE 2-3V, 03/21/2021, 8:17. [facility], MR, MR LUMBAR SPINE WO CON, 09/22/2020, 13:34. [facility], CT, CT LUMBAR SPINE WO CON, 03/18/2021, 11:08. FINDINGS: Image quality: Excellent. Bones: There is mild levoscoliosis with normal bony alignment. No acute vertebral body compression fractures. No suspicious lytic or blastic bony lesions. No pars defects. There are postsurgical changes related to discectomy, left hemilaminectomy and posterior fusion at L3-L4-L5. Disc prostheses are seen at L3-L4 and L4-L5. Pedicular screws and fusion rods are intact. There is severe degenerative disease at L2-L3, and moderate degenerative disease at T10-T11, T11-T12 and T12-L1. Mild bony central canal stenosis at T11-T12, T12-L1, L1-L2 and L2-L3. Soft tissues: Nerve roots cannot be visualized on this noncontrast enhanced CT exam. There is severe central canal stenosis at L3-L4 from posterior disc bulge and hypertrophy of ligamentum flavum. Amorphous soft tissue is seen in the laminectomy site, which could represent hematoma. Similarly, amorphous soft tissue density is seen at level of L4-L5 level, which appears slightly higher in attenuation and could represent hematoma. In addition, there are pockets of gas collections adjacent to the laminectomy site at this level. Unfortunately, due to metallic artifacts from adjacent surgical hardware, the central canal contents are not well visualized. A subcutaneous fluid collection with pockets of gas in the right lower back in the area posterior to the right L5 pedicular screw measuring 4.0 cm AP x 3.6 cm transverse x 6.1 cm cephalocaudal. This could represent a postoperative hematoma or abscess. No retroperitoneal masses or hematomas. Visualized aorta and iliac arteries are normal in caliber with moderate to severe atherosclerotic calcification. IMPRESSION: 1. Postsurgical changes related to discectomy, left hemilaminectomy and posterior fusion at L3-L4 and L4-L5. There is amorphous soft tissue at the L3-L4 and L4-L5 postsurgical beds and gas collections at left L4-L5 laminectomy site, suspicious for hematoma or infection. Because of metallic artifacts and lack of intravenous contrast, visualization of spinal canal content is severely limited. Recommend MRI for further evaluation. 2. A 4.0 x 3.6 x 6.1 cm subcutaneous fluid and gas collection right of the midline in the postsurgical bed. Differential diagnosis include postsurgical change versus postsurgical infection. 3. No findings to suggest hardware failure. The result was discussed with Dr. Javed. Dictated by: Medina Dodge M.D. on 03/31/2021 at 9:42 Approved by: Medina Dodge M.D. on 03/31/2021 at 10:53 Lumbar MRI: Radiologist Impression: [address] [id number] Resonance ReportSigned Patient: Erendira Arthur LMR#: [id number]: 1950Acct:[id number]/Sex: 70 / FDate of Service: 03/31/21Loc: EDAccession Number: [id number] Procedure: MR lumbar spine wo con Ordering Provider: Brenden Javed D.O. PROCEDURE: MR LUMBAR SPINE WO CON INDICATIONS: post surgical weakness, loss of bladder, per ortho TECHNIQUE: Noncontrast sagittal T1 spin echo and T2 fast echo, sagittal STIR, axial T1 and T2 fast spin echo through the lumbar spine. In cases with scoliosis, additional coronal T2 fast spin echo may be performed. COMPARISON: [facility], CR, XR LUMBAR SPINE 2-3V, 03/21/2021, 8:17. [facility] [place], CR, XR LUMBAR SPINE 2 OR 3 VIEWS, 08/06/2020, 10:41. [facility], CT, CT LUMBAR SPINE WO CON, 03/31/2021, 10:16. [facility], CT, CT LUMBAR SPINE WO CON, 03/18/2021, 11:08. [facility], MR, MR LUMBAR SPINE WO CON, 09/22/2020, 13:34. FINDINGS: Image quality: Excellent. Alignment and Curvature: There is normal bony alignment. Bone Marrow: There are postsurgical changes related to discectomy, left hemilaminectomy and posterior fusion at L3-L4 and L4-L5. Marrow is of normal overall signal. No acute vertebral body compression fractures. Spinal Cord: Conus medullaris terminates at the L1-L2 level. Visualized cord demonstrates normal signal and size. Paraspinous Soft Tissues: No paravertebral masses. There is a fluid collection in the right posterior back, partially visualized, measuring 3.2 x 4.1 cm. T12-L1: Moderate loss of disc height and disc desiccation disc desiccation. There is diffuse posterior disc bulge. The central canal is mildly narrowed. Mild bilateral foraminal stenosis. L1-L2: Moderate loss of disc height and disc desiccation disc desiccation. There is diffuse circumferential disc bulge. Epidural lipomatosis. The central canal is moderately narrowed. Moderate right and mild left foraminal stenosis. L2-L3: Severe loss of disc height and disc desiccation. There is diffuse circumferential disc bulge with large posterior disc osteophyte complex. Epidural lipomatosis. Moderate bilateral facet arthropathy. The central canal is severely narrowed. Moderate right and mild left foraminal stenosis. L3-L4: Discectomy, left hemilaminectomy and posterior fusion. There is an epidural fluid collection on the left epidural space extending to the left neural foramen measuring 2.6 cm AP x 2.3 cm transverse x 3.6 cm cephalocaudal, compatible with a hematoma or abscess. There is encroachment and compression of the left nerve root. Severe central canal stenosis is present. Moderate right foraminal stenosis. Severe left foraminal stenosis. L4-L5: Discectomy, left hemilaminectomy and posterior fusion. There is an epidural fluid collection on the left epidural space extending to the left neural foramen measuring 4.0 cm AP x 1.8 cm transverse x 3.0 cm cephalocaudal, compatible with a hematoma or abscess. There is encroachment and compression of the left nerve root. Severe central canal stenosis is present. Moderate right foraminal stenosis. Severe left foraminal stenosis. L5-S1: Preserved disc height. Mild disc desiccation. There is mild posterior disc bulge. Epidural lipomatosis. The central canal is mildly narrowed. Mild bilateral foraminal stenosis. IMPRESSION: 1. Discectomy, left hemilaminectomy and posterior fusion at L3-L4 and L4-L5. There are epidural fluid collections on the left at L3-L4 and L4-L5 levels as described, extending into the neural foramina. The fluid collections may be hematomas or abscesses. 2. Severe central canal stenosis at L2-L3, L3-L4 and L4-L5. 3. Multilevel foraminal stenoses as described. 4. Partial visualization of a 3.2 x 4.1 cm subcutaneous fluid collection. Differential diagnosis include postoperative seroma, hematoma or abscess. The result was discussed with Dr. Javed. Dictated by: Medina Dodge M.D. on 03/31/2021 at 13:14 Approved by: Medina Dodge M.D. on 03/31/2021 at 13:40 MDM Narrative Medical decision making narrative: Patient with postoperative hematoma and acute neurologic symptoms will require urgent versus emergent spinal intervention. Our only local spine surgeon [place] of country. After multiple consultations, and discussion of findings recommendation is to transfer to [facility] for patient's needs. I have spoken with their transfer center, Dr. De La Cruz is happy to accept, patient understands and is in agreement with the plan Critical Care Time Critical Care Time Critical Care Time: Yes Total Critical Care Time: 35 Attestation: The high probability of a clinically significant, sudden or life threatening deterioration of the [Neuro] system(s) required my full and direct attention, intervention and personal management. The aggregate critical care time was [35] minutes. This time is in addition to time spent performing reported procedures but includes the following: [x] Data Review and interpretation []x Patient assessment and monitoring of vital signs [x] Documentation []x Medication orders and management Discharge Plan Departure Patient Disposition: General Acute Hospital Clinical Impression: Epidural hematoma Prescriptions: No Action omeprazole 20 MG capsule,delayed release(DR/EC) 20 mg PO Q DAY Qty: 0 RF: 0 escitalopram oxalate [Lexapro] 10 MG tablet 10 mg PO QDAY Qty: 0 RF: 0 rosuvastatin [Crestor] 10 MG tablet 10 mg PO QDAY Qty: 0 RF: 0 nitroglycerin [Nitrostat] 0.4 MG tablet, sublingual 0.4 mg Sublingual Q5MIN X3 PRN (Reason: Chest Pain) Qty: 0 RF: 0 irbesartan 150 mg Tablet 150 mg PO BID RF: 0 metoprolol tartrate 25 mg Tablet 25 mg PO QPM RF: 0 Basaglar KwikPen U-100 Insulin 100 unit/mL (3 mL) Insulin Pen 18 unit SUBCUT QAM RF: 0 Apidra SoloStar U-100 Insulin 100 unit/mL Insulin Pen 4 - 6 unit SUBCUT TID RF: 0 aspirin 81 mg Tablet,Delayed Release (Dr/Ec) 162 mg PO BEDTIME RF: 0 ferrous sulfate 325 mg (65 mg iron) Tablet 325 mg PO DAILY RF: 0 acetaminophen 325 mg Tablet 650 mg PO Q6HR PRN (Reason: Pain, Mild (1-3)) Qty: 60 RF: 0 oxycodone 5 mg capsule 5 mg PO Q3H PRN (Reason: pain) Qty: 30 RF: 0 oxycodone 5 mg tablet 5 mg PO Q4H PRN (Reason: pain) Qty: 30 RF: 0 amlodipine 5 mg tablet 5 mg PO QAM RF: 0 Referrals: Julius Poole MD [Primary Care Provider] -
[2021-03-31] MEDS: SODIUM CHLORIDE 0.9% 1,000 ML 150 ML IV (09:30)
[2021-03-31 09:32] LABS: Add Manual Diff / Slide Review NO; Basophils Absolute Auto 0 /uL (0-100); Basophils Percent Auto 0.3 % (0-2); Eosinophils Absolute Auto 0 /uL (0-450); Eosinophils Percent Auto 0.1 % (2-4); Hemoglobin 10.1 g/dL (12.0-16.0); Lymphocytes Absolute Auto 900 /uL (1100-4500); Lymphocytes Percent Auto 6.9 % (25-40); Mean Corpuscular HGB Conc 31.7 % (30-36); Mean Corpuscular Volume 82.2 fL (80-100); Monocytes Absolute Auto 800 /uL (0-900); Monocytes Percent Auto 6.2 % (3-14); Neutrophils Absolute Auto 10900 /uL (1500-7000); Neutrophils Percent Auto 86.5 % (50-75); Platelet Count 439 X10^3/uL (150-400); Red Blood Cell Count 3.89 X10^6/uL (4.0-5.2); Red Cell Distribution Width 16.6 % (11.6-14.8); White Blood Cell Count 12.6 X10^3/uL (4.5-11.0)
[2021-03-31 09:45] LABS: Alanine Aminotransferase 80 IU/L (<35); Albumin 3.8 g/dL (3.5-5.0); Alkaline Phosphatase 164 U/L (38-126); Aspartate Aminotransferase 92 IU/L (14-36); Bilirubin Total 0.5 mg/dL (0.2-1.3); Blood Urea Nitrogen 18 mg/dL (7-17); Carbon Dioxide 27 mmol/L (22-32); Chloride 99 mmol/L (98-107); Creatine Kinase 105 U/L (30-135); Estimated Glomerular Filt Rate > 60.0 mL/min (>60); Globulin 3.7 g/dL (1.7-4.1); Glucose 284 mg/dL (80-110); HEMOLYSIS < 15 (0-50); Potassium 4.3 mmol/L (3.4-5.1); Sodium 133 mmol/L (137-145); Total Protein 7.5 g/dL (6.3-8.2)
[2021-03-31 09:46] LABS: Lactate (Lactic Acid) 1.7 mmol/L (0.7-2.1)
[2021-03-31 09:57] LABS: Troponin I < 0.012 ng/mL (0.01-0.034)
[2021-03-31 10:01] LABS: CKMB % Relative Index 1.5 % (1.5-5.0)
[2021-03-31 10:02] LABS: Procalcitonin 0.13 ng/mL (<0.5)
--- NOTE | 2021-03-31 10:12 | DI.CT.S_ITS ---
PROCEDURE: CT LUMBAR SPINE WO CON INDICATIONS: recent lumbar surgery, change in symptoms, now weak TECHNIQUE: Noncontrast 3 mm thick sections acquired from the T12 level to the sacrum. Sagittal and coronal reformats were constructed. For radiation dose reduction, the following was used: automated exposure control. COMPARISON: [facility], CR, XR LUMBAR SPINE 2-3V, 03/21/2021, 8:17. [facility], MR, MR LUMBAR SPINE WO CON, 09/22/2020, 13:34. [facility], CT, CT LUMBAR SPINE WO CON, 03/18/2021, 11:08. FINDINGS: Image quality: Excellent. Bones: There is mild levoscoliosis with normal bony alignment. No acute vertebral body compression fractures. No suspicious lytic or blastic bony lesions. No pars defects. There are postsurgical changes related to discectomy, left hemilaminectomy and posterior fusion at L3-L4-L5. Disc prostheses are seen at L3-L4 and L4-L5. Pedicular screws and fusion rods are intact. There is severe degenerative disease at L2-L3, and moderate degenerative disease at T10-T11, T11-T12 and T12-L1. Mild bony central canal stenosis at T11-T12, T12-L1, L1-L2 and L2-L3. Soft tissues: Nerve roots cannot be visualized on this noncontrast enhanced CT exam. There is severe central canal stenosis at L3-L4 from posterior disc bulge and hypertrophy of ligamentum flavum. Amorphous soft tissue is seen in the laminectomy site, which could represent hematoma. Similarly, amorphous soft tissue density is seen at level of L4-L5 level, which appears slightly higher in attenuation and could represent hematoma. In addition, there are pockets of gas collections adjacent to the laminectomy site at this level. Unfortunately, due to metallic artifacts from adjacent surgical hardware, the central canal contents are not well visualized. A subcutaneous fluid collection with pockets of gas in the right lower back in the area posterior to the right L5 pedicular screw measuring 4.0 cm AP x 3.6 cm transverse x 6.1 cm cephalocaudal. This could represent a postoperative hematoma or abscess. No retroperitoneal masses or hematomas. Visualized aorta and iliac arteries are normal in caliber with moderate to severe atherosclerotic calcification. IMPRESSION: 1. Postsurgical changes related to discectomy, left hemilaminectomy and posterior fusion at L3-L4 and L4-L5. There is amorphous soft tissue at the L3-L4 and L4-L5 postsurgical beds and gas collections at left L4-L5 laminectomy site, suspicious for hematoma or infection. Because of metallic artifacts and lack of intravenous contrast, visualization of spinal canal content is severely limited. Recommend MRI for further evaluation. 2. A 4.0 x 3.6 x 6.1 cm subcutaneous fluid and gas collection right of the midline in the postsurgical bed. Differential diagnosis include postsurgical change versus postsurgical infection. 3. No findings to suggest hardware failure. The result was discussed with Dr. Javed. Dictated by: Medina Dodge M.D. on 03/31/2021 at 9:42 Approved by: Medina Dodge M.D. on 03/31/2021 at 10:53
[2021-03-31] MEDS: DEXAMETHASONE 10 MG/ML VIAL 6 MG IV (10:20)
[2021-03-31 11:07] LABS: COVID19 - ADMIT (NP swab/PCR) Negative (Negative)
--- NOTE | 2021-03-31 11:22 | DI.MRI.S_ITS ---
PROCEDURE: MR LUMBAR SPINE WO CON INDICATIONS: post surgical weakness, loss of bladder, per ortho TECHNIQUE: Noncontrast sagittal T1 spin echo and T2 fast echo, sagittal STIR, axial T1 and T2 fast spin echo through the lumbar spine. In cases with scoliosis, additional coronal T2 fast spin echo may be performed. COMPARISON: [facility], CR, XR LUMBAR SPINE 2-3V, 03/21/2021, 8:17. [facility] [place], CR, XR LUMBAR SPINE 2 OR 3 VIEWS, 08/06/2020, 10:41. [facility], CT, CT LUMBAR SPINE WO CON, 03/31/2021, 10:16. [facility], CT, CT LUMBAR SPINE WO CON, 03/18/2021, 11:08. [facility], MR, MR LUMBAR SPINE WO CON, 09/22/2020, 13:34. FINDINGS: Image quality: Excellent. Alignment and Curvature: There is normal bony alignment. Bone Marrow: There are postsurgical changes related to discectomy, left hemilaminectomy and posterior fusion at L3-L4 and L4-L5. Marrow is of normal overall signal. No acute vertebral body compression fractures. Spinal Cord: Conus medullaris terminates at the L1-L2 level. Visualized cord demonstrates normal signal and size. Paraspinous Soft Tissues: No paravertebral masses. There is a fluid collection in the right posterior back, partially visualized, measuring 3.2 x 4.1 cm. T12-L1: Moderate loss of disc height and disc desiccation disc desiccation. There is diffuse posterior disc bulge. The central canal is mildly narrowed. Mild bilateral foraminal stenosis. L1-L2: Moderate loss of disc height and disc desiccation disc desiccation. There is diffuse circumferential disc bulge. Epidural lipomatosis. The central canal is moderately narrowed. Moderate right and mild left foraminal stenosis. L2-L3: Severe loss of disc height and disc desiccation. There is diffuse circumferential disc bulge with large posterior disc osteophyte complex. Epidural lipomatosis. Moderate bilateral facet arthropathy. The central canal is severely narrowed. Moderate right and mild left foraminal stenosis. L3-L4: Discectomy, left hemilaminectomy and posterior fusion. There is an epidural fluid collection on the left epidural space extending to the left neural foramen measuring 2.6 cm AP x 2.3 cm transverse x 3.6 cm cephalocaudal, compatible with a hematoma or abscess. There is encroachment and compression of the left nerve root. Severe central canal stenosis is present. Moderate right foraminal stenosis. Severe left foraminal stenosis. L4-L5: Discectomy, left hemilaminectomy and posterior fusion. There is an epidural fluid collection on the left epidural space extending to the left neural foramen measuring 4.0 cm AP x 1.8 cm transverse x 3.0 cm cephalocaudal, compatible with a hematoma or abscess. There is encroachment and compression of the left nerve root. Severe central canal stenosis is present. Moderate right foraminal stenosis. Severe left foraminal stenosis. L5-S1: Preserved disc height. Mild disc desiccation. There is mild posterior disc bulge. Epidural lipomatosis. The central canal is mildly narrowed. Mild bilateral foraminal stenosis. IMPRESSION: 1. Discectomy, left hemilaminectomy and posterior fusion at L3-L4 and L4-L5. There are epidural fluid collections on the left at L3-L4 and L4-L5 levels as described, extending into the neural foramina. The fluid collections may be hematomas or abscesses. 2. Severe central canal stenosis at L2-L3, L3-L4 and L4-L5. 3. Multilevel foraminal stenoses as described. 4. Partial visualization of a 3.2 x 4.1 cm subcutaneous fluid collection. Differential diagnosis include postoperative seroma, hematoma or abscess. The result was discussed with Dr. Javed. Dictated by: Medina Dodge M.D. on 03/31/2021 at 13:14 Approved by: Medina Dodge M.D. on 03/31/2021 at 13:40
[2021-03-31] MEDS: HYDROMORPHONE 0.5 MG INJ IV (12:18)
== END 2021-03-31 19:15 | disposition short-term general hospital (02) ==
PROVIDERS: Emergency Provider Emergency Medicine; PCP Family Medicine
DX: G97.61 Postprocedural hematoma of a nervous system organ or structure following a nervous system procedure (principal); R15.9 Full incontinence of feces; R32 Unspecified urinary incontinence
CPT/HCPCS: 36415; 72131; 72148; 80053; 82550; 82553; 82962; 83605; 84145; 84484; 85025; 87040; 87635; 93005; 96361; 96374; 96375; 99284; 99291; C9803; J1100; J1170